=== PATIENT | male | born 1960 | race African-American/Black ===

== ENCOUNTER 2018-04-27 16:37 | Inpatient (IN) | payer OTHER ==
[~2018-04-27] VITALS: Ht 185.4 cm; Wt 97.3 kg
[2018-04-27 17:22] LABS: Basophils # (auto) 0.1 uL; Basophils % (auto) 1.2 % (0.0-2.0); Eosinophils # (auto) 0.3 uL; Eosinophils % (auto) 3.6 % (0.0-7.0); Hematocrit 40.2 % (41.0-53.0); Hemoglobin 13.2 g/dL (13.5-17.5); Lymphocytes # (auto) 3.2 uL; Lymphocytes % (auto) 45.6 % (10.0-50.0); Mean Corpuscular Hgb Conc. 32.8 g/dL (32.0-36.0); Mean Corpuscular Volume 85.3 fL (80.0-100.0); Monocytes # (auto) 0.4 uL; Neutrophils # (auto) 3.1 uL; Neutrophils % (auto) 43.6 % (37.0-80.0); Nucleated Red Blood Cells % 0.2 %; Platelet Count (auto) 336 10^3/uL (140-450); Red Blood Cells 4.71 10^6/uL (4.5-5.90); Red Cell Distribution Width 13.4 % (11.8-14.3); White Blood Cell 7.1 10^3/uL (4.4-10.8)
[2018-04-27 17:49] LABS: Albumin 3.7 g/dL (3.4-5.0); BUN/Creatinine Ratio 13.4; Bilirubin, Total 0.1 mg/dL (0.2-1.0); Calcium 9.1 mg/dL (8.5-10.1); Potassium 4.1 mmol/L (3.5-5.1)
[2018-04-27] MEDS ORDERED: PIPERACILLIN-TAZOB 3.375GM 100 ML IV ONE (19:30)
[2018-04-27] MEDS ORDERED: MORPHINE SULFATE 4 MG/ML SYR/VIAL IV ONE (22:15)
[2018-04-27] MEDS ORDERED: ONDANSETRON HCL 4 MG/2 ML VIAL IV ONE (22:15)
[2018-04-27 23:08] LABS: Urine Bacteria NONE SEEN /hpf (None Seen); Urine Blood Negative /uL (Negative); Urine Specific Gravity 1.006 (1.001-1.035); Urine WBC <1 /hpf (0 - 3)
[2018-04-27] MEDS ORDERED: DEXTROSE (50%) 50ML SYRG IV PRN (23:15)
[2018-04-27] MEDS: cloNIDine HCL 0.1 MG TAB PO PRN (23:58)
[2018-04-28 01:45] VITALS: BP 139/74
[2018-04-28] MEDS ORDERED: VANCOMYCIN 1GM/250ML 250 ML IV ONE (02:00)
[2018-04-28 05:00] VITALS: BP 105/68
[2018-04-28] MEDS: ACCU-CHEK COMFORT CURVE STRIP VI SCH ×4 (06:34→21:29)
[2018-04-28] MEDS: InsuLIN REG 1unit/0.01ml Soln (100units/ml) SC SCH ×4 (06:38→21:47)
[2018-04-28 08:59] LABS: Albumin 3.1 g/dL (3.4-5.0); BUN/Creatinine Ratio 12.1; Bilirubin, Total 0.4 mg/dL (0.2-1.0); Calcium 8.6 mg/dL (8.5-10.1); Total Protein 6.8 g/dL (6.4-8.2)
[2018-04-28 09:06] VITALS: BP 121/75
[2018-04-28 09:12] LABS: Potassium 4.2 mmol/L (3.5-5.1)
[2018-04-28] MEDS ORDERED: GABAPENTIN 300 MG CAP PO SCH (10:00)
[2018-04-28] MEDS ORDERED: VANCOMYCIN 1GM/250ML 250 ML IV SCH (10:00)
[2018-04-28] MEDS ORDERED: LISINOPRIL 10 MG TAB PO SCH (10:00)
[2018-04-28] MEDS ORDERED: ENOXAPARIN SOD 40 MG/0.4 ML SYRINGE SC SCH (10:00)
[2018-04-28] MEDS: ATORVASTATIN 20 MG TAB PO SCH (10:49)
[2018-04-28] MEDS: METOPROLOL SUCCINATE XL 50 MG TAB PO SCH ×2 (10:51→21:29)
[2018-04-28 12:12] VITALS: BP 131/72
[2018-04-28] MEDS: VANCOMYCIN 1GM/250ML 250 ML IV SCH ×2 (15:21→19:30)
[2018-04-28 22:00] VITALS: BP 141/77
[2018-04-28 22:29] VITALS: BP 126/65
[2018-04-28] MEDS: GABAPENTIN 300 MG CAP PO SCH (22:29)
[2018-04-29] MEDS: VANCOMYCIN 1GM/250ML 250 ML IV SCH ×2 (03:00→14:56)
[2018-04-29 05:00] VITALS: BP 130/72
[2018-04-29] MEDS: GABAPENTIN 300 MG CAP PO SCH ×3 (06:37→21:40)
[2018-04-29] MEDS: ACCU-CHEK COMFORT CURVE STRIP VI SCH ×4 (06:37→21:44)
[2018-04-29] MEDS: InsuLIN REG 1unit/0.01ml Soln (100units/ml) SC SCH ×4 (06:45→21:44)
[2018-04-29 06:52] LABS: BUN/Creatinine Ratio 14.4; Calcium 8.3 mg/dL (8.5-10.1); Potassium 4.1 mmol/L (3.5-5.1)
[2018-04-29 06:54] LABS: Bilirubin, Total 0.2 mg/dL (0.2-1.0); Total Protein 6.8 g/dL (6.4-8.2)
[2018-04-29 07:45] VITALS: BP 130/75
[2018-04-29 09:12] LABS: INR 0.97 (0.9-1.15); Prothrombin Time 10.4 sec (9.27-12.13)
[2018-04-29] MEDS: ATORVASTATIN 20 MG TAB PO SCH (09:31)
[2018-04-29] MEDS: METOPROLOL SUCCINATE XL 50 MG TAB PO SCH ×2 (09:33→21:41)
[2018-04-29] MEDS: LOSARTAN POTASSIUM 50 MG TAB PO SCH (09:33)
[2018-04-29] MEDS: ENOXAPARIN SOD 40 MG/0.4 ML SYRINGE SC SCH (09:34)
[2018-04-29] MEDS ORDERED: GABAPENTIN 300 MG CAP PO SCH (10:00)
[2018-04-29] MEDS: ASPirin 81 mg TAB PO SCH (13:24)
[2018-04-29 13:47] VITALS: BP 121/70
[2018-04-29 16:54] VITALS: BP 133/66
[2018-04-29 22:00] VITALS: BP 110/72
[2018-04-30] MEDS ORDERED: VANCOMYCIN 1GM/250ML 250 ML IV SCH ×2 (03:00→07:00)
[2018-04-30 05:00] VITALS: BP 147/90
[2018-04-30] MEDS: GABAPENTIN 300 MG CAP PO SCH ×3 (05:36→21:42)
[2018-04-30] MEDS: InsuLIN REG 1unit/0.01ml Soln (100units/ml) SC SCH ×4 (06:24→21:44)
[2018-04-30] MEDS: ACCU-CHEK COMFORT CURVE STRIP VI SCH ×4 (06:24→21:43)
[2018-04-30 08:00] VITALS: BP 160/87
[2018-04-30] MEDS: ASPirin 81 mg TAB PO SCH (09:29)
[2018-04-30] MEDS: ENOXAPARIN SOD 40 MG/0.4 ML SYRINGE SC SCH (09:29)
[2018-04-30] MEDS: ATORVASTATIN 20 MG TAB PO SCH (09:38)
[2018-04-30] MEDS: METOPROLOL SUCCINATE XL 50 MG TAB PO SCH ×2 (09:38→22:00)
[2018-04-30] MEDS: LOSARTAN POTASSIUM 50 MG TAB PO SCH (09:40)
[2018-04-30] MEDS ORDERED: IODIXANOL 320MG/ML 100ML BTL IV ONE (11:56)
[2018-04-30] MEDS ORDERED: LIDOCAINE 2% (LOCAL ANESTH.) PF 5ml SDV ONE (11:56)
[2018-04-30 12:00] VITALS: BP 151/87
[2018-04-30] MEDS ORDERED: ANGIOMAX 250 MG VIAL IV ONE ×2 (12:02→13:13)
[2018-04-30] MEDS ORDERED: SODIUM CHL 0.9% 50 ML ONE ×2 (12:03→13:13)
[2018-04-30] MEDS ORDERED: fentaNYL CITRATE 100 MCG/2 ML VL ONE (12:03)
[2018-04-30] MEDS ORDERED: MIDAZOLAM HCL 1MG/1ML-2 ML VIAL ONE (12:03)
[2018-04-30] MEDS ORDERED: VERAPAMIL 2.5MG/ML INJ 2ML VIAL IV ONE (12:38)
[2018-04-30] MEDS ORDERED: NITROGLYCERIN 5MG/ML 10ML VIAL IV ONE (12:38)
[2018-04-30] MEDS ORDERED: diphenhdrAMINE HCL 50 MG/1 ML VL ONE (12:52)
[2018-04-30] MEDS ORDERED: CLOPIDOGREL 300 MG TAB ONE (13:29)
[2018-04-30] MEDS ORDERED: NITROGLYCERIN 0.4MG/DOSE SPRAY 4.9GM ONE (13:34)
[2018-04-30] MEDS: cloNIDine HCL 0.1 MG TAB PO PRN (15:09)
[2018-04-30 17:00] VITALS: BP 102/67
[2018-04-30 22:00] VITALS: BP 105/68
[2018-05-01] MEDS: VANCOMYCIN 1GM/250ML 250 ML IV SCH ×2 (01:30→14:02)
[2018-05-01 05:00] VITALS: BP 122/63
[2018-05-01] MEDS: GABAPENTIN 300 MG CAP PO SCH ×3 (05:57→22:00)
[2018-05-01] MEDS: ACCU-CHEK COMFORT CURVE STRIP VI SCH ×4 (06:11→22:00)
[2018-05-01] MEDS: InsuLIN REG 1unit/0.01ml Soln (100units/ml) SC SCH ×4 (06:12→22:00)
[2018-05-01 08:04] LABS: Basophils # (auto) 0 uL; Basophils % (auto) 0.3 % (0.0-2.0); Eosinophils # (auto) 0.2 uL; Eosinophils % (auto) 4.6 % (0.0-7.0); Hematocrit 39.3 % (41.0-53.0); Hemoglobin 12.6 g/dL (13.5-17.5); Lymphocytes % (auto) 41.7 % (10.0-50.0); Mean Corpuscular Hemoglobin 27.4 pg (28.0-32.0); Mean Corpuscular Hgb Conc. 32.1 g/dL (32.0-36.0); Mean Corpuscular Volume 85.2 fL (80.0-100.0); Monocytes # (auto) 0.4 uL; Monocytes % (auto) 8.5 % (0.0-12.0); Neutrophils # (auto) 2.1 uL; Neutrophils % (auto) 44.9 % (37.0-80.0); Nucleated Red Blood Cells % 0.1 %; Platelet Count (auto) 299 10^3/uL (140-450); Red Blood Cells 4.61 10^6/uL (4.5-5.90); Red Cell Distribution Width 13.7 % (11.8-14.3); White Blood Cell 4.7 10^3/uL (4.4-10.8)
[2018-05-01 08:08] LABS: Calcium 8.6 mg/dL (8.5-10.1); Potassium 4.3 mmol/L (3.5-5.1)
[2018-05-01 08:14] LABS: BUN/Creatinine Ratio 15.3
[2018-05-01 09:00] VITALS: BP 137/55
[2018-05-01] MEDS: ENOXAPARIN SOD 40 MG/0.4 ML SYRINGE SC SCH (09:57)
[2018-05-01] MEDS: LOSARTAN POTASSIUM 50 MG TAB PO SCH (09:58)
[2018-05-01] MEDS: ATORVASTATIN 20 MG TAB PO SCH (09:58)
[2018-05-01] MEDS: ASPirin 81 mg TAB PO SCH (09:58)
[2018-05-01] MEDS: METOPROLOL SUCCINATE XL 50 MG TAB PO SCH ×2 (09:58→22:00)
[2018-05-01 13:00] VITALS: BP 140/56
[2018-05-01 17:00] VITALS: BP 130/50
[2018-05-01 22:00] VITALS: BP 100/123
[2018-05-02] MEDS: VANCOMYCIN 1GM/250ML 250 ML IV SCH ×2 (02:06→15:11)
[2018-05-02 05:00] VITALS: BP 110/61
[2018-05-02] MEDS: GABAPENTIN 300 MG CAP PO SCH ×3 (06:30→22:12)
[2018-05-02] MEDS: InsuLIN REG 1unit/0.01ml Soln (100units/ml) SC SCH ×4 (07:14→22:13)
[2018-05-02] MEDS: ACCU-CHEK COMFORT CURVE STRIP VI SCH ×4 (07:15→22:13)
[2018-05-02 08:30] VITALS: BP 146/77
[2018-05-02] MEDS: ENOXAPARIN SOD 40 MG/0.4 ML SYRINGE SC SCH (10:22)
[2018-05-02] MEDS: ATORVASTATIN 20 MG TAB PO SCH (10:23)
[2018-05-02] MEDS: LOSARTAN POTASSIUM 50 MG TAB PO SCH (10:23)
[2018-05-02] MEDS: ASPirin 81 mg TAB PO SCH (10:23)
[2018-05-02] MEDS: METOPROLOL SUCCINATE XL 50 MG TAB PO SCH ×2 (10:23→22:12)
[2018-05-02 12:56] VITALS: BP 137/99
[2018-05-02 16:51] VITALS: BP 148/76
[2018-05-02] MEDS ORDERED: INSLANTI SC (17:05)
[2018-05-02 22:00] VITALS: BP 139/68
[2018-05-03] MEDS ORDERED: VANCOMYCIN 1GM/250ML 250 ML IV SCH (01:00)
[2018-05-03 05:00] VITALS: BP 132/71
[2018-05-03 05:28] LABS: Basophils # (auto) 0 uL; Basophils % (auto) 0.5 % (0.0-2.0); Eosinophils # (auto) 0.3 uL; Hematocrit 40.6 % (41.0-53.0); Hemoglobin 13.1 g/dL (13.5-17.5); Lymphocytes # (auto) 2.4 uL; Lymphocytes % (auto) 33.6 % (10.0-50.0); Mean Corpuscular Hemoglobin 27.8 pg (28.0-32.0); Mean Corpuscular Hgb Conc. 32.3 g/dL (32.0-36.0); Mean Corpuscular Volume 86.1 fL (80.0-100.0); Monocytes # (auto) 0.7 uL; Monocytes % (auto) 10.1 % (0.0-12.0); Neutrophils # (auto) 3.6 uL; Neutrophils % (auto) 51.8 % (37.0-80.0); Nucleated Red Blood Cells % 0.1 %; Platelet Count (auto) 315 10^3/uL (140-450); Red Blood Cells 4.72 10^6/uL (4.5-5.90); Red Cell Distribution Width 13.3 % (11.8-14.3)
[2018-05-03 06:03] LABS: BUN/Creatinine Ratio 14.8; Calcium 8.8 mg/dL (8.5-10.1); Potassium 4.6 mmol/L (3.5-5.1)
[2018-05-03] MEDS: GABAPENTIN 300 MG CAP PO SCH (06:15)
[2018-05-03] MEDS: ACCU-CHEK COMFORT CURVE STRIP VI SCH (06:15)
[2018-05-03] MEDS: InsuLIN REG 1unit/0.01ml Soln (100units/ml) SC SCH (06:15)
[2018-05-03 08:37] VITALS: BP 129/66
[2018-05-03 11:05] VITALS: BP 129/66
== END 2018-05-03 11:30 | DRG 271 ==
LOC: EEVIPCON 16:37 → ER 16:37 → EAST 16:38 → EEVIPCON 16:38
PROVIDERS: ADMIT Internal Medicine; ATTEND Internal Medicine
PROC: 04CP3ZZ Extirpation of Matter from Right Anterior Tibial Artery, Percutaneous Approach (ICD-10-PCS; principal; 2018-04-30)
PROC: 04CK3ZZ Extirpation of Matter from Right Femoral Artery, Percutaneous Approach (ICD-10-PCS; 2018-04-30)
PROC: 047P3Z1 Dilation of Right Anterior Tibial Artery using Drug-Coated Balloon, Percutaneous Approach (ICD-10-PCS; 2018-04-30)
PROC: 047K3Z1 Dilation of Right Femoral Artery using Drug-Coated Balloon, Percutaneous Approach (ICD-10-PCS; 2018-04-30)
PROC: B41F1ZZ Fluoroscopy of Right Lower Extremity Arteries using Low Osmolar Contrast (ICD-10-PCS; 2018-04-30)
DX: I70.201 Unspecified atherosclerosis of native arteries of extremities, right leg (principal); M86.171 Other acute osteomyelitis, right ankle and foot; L03.115 Cellulitis of right lower limb; E11.69 Type 2 diabetes mellitus with other specified complication; L97.509 Non-pressure chronic ulcer of other part of unspecified foot with unspecified severity; I10 Essential (primary) hypertension; E11.621 Type 2 diabetes mellitus with foot ulcer; H54.7 Unspecified visual loss; L97.519 Non-pressure chronic ulcer of other part of right foot with unspecified severity; M79.674 Pain in right toe(s); E78.00 Pure hypercholesterolemia, unspecified; E11.40 Type 2 diabetes mellitus with diabetic neuropathy, unspecified; I25.10 Atherosclerotic heart disease of native coronary artery without angina pectoris; E11.51 Type 2 diabetes mellitus with diabetic peripheral angiopathy without gangrene; Z80.0 Family history of malignant neoplasm of digestive organs; Z82.3 Family history of stroke; Z82.49 Family history of ischemic heart disease and other diseases of the circulatory system; Z83.3 Family history of diabetes mellitus; Z87.891 Personal history of nicotine dependence; Z89.429 Acquired absence of other toe(s), unspecified side; Z90.89 Acquired absence of other organs; Z89.421 Acquired absence of other right toe(s); Z89.422 Acquired absence of other left toe(s)
CPT/HCPCS: 36415; 37224; 37225; 37228; 37229; 71045; 73630; 73700; 73718; 75710; 80048; 80053; 80202; 81001; 82962; 85025; 85610; 86850; 86900; 86901; 87040; 87077; 87186; 87205; 93005; 93926; 96365; 96366; 96375; 99152; 99153; A6257; J1815; J2001; J2250; J2405; J2543; J3490; Q9967

== ENCOUNTER 2018-05-03 15:27 | Inpatient (IN) | payer OTHER ==
[~2018-05-03] VITALS: Ht 185.4 cm; Wt 79.2 kg
[~2018-05-03 15:27] MED LIST: INSLANTI SC
[2018-05-03] MEDS ORDERED: NITROGLYCERIN 0.4 MG SL TAB SL PRN (16:15)
[2018-05-03] MEDS ORDERED: MORPHINE SULF INJ 2 MG/ML SYRINGE 1ML IV PRN (16:15)
[2018-05-03] MEDS ORDERED: cloNIDine HCL 0.1 MG TAB PO PRN (16:30)
[2018-05-03] MEDS ORDERED: DEXTROSE (50%) 50ML SYRG IV PRN ×2 (16:30→16:45)
[2018-05-03] MEDS ORDERED: VANCOMYCIN 1GM/250ML 250 ML IV SCH (18:00)
[2018-05-03] MEDS ORDERED: traMADol HCL 50 MG TAB PO SCH (18:00)
[2018-05-03 21:33] VITALS: BP 107/65
[2018-05-03] MEDS: ceFAZolin 1GM/50ML 50 ML IV SCH (21:41)
[2018-05-03] MEDS ORDERED: VANCOMYCIN PER PHARMACY 0 MG IV PRN (22:00)
[2018-05-03] MEDS: ACCU-CHEK COMFORT CURVE STRIP VI SCH (22:26)
[2018-05-03] MEDS: ATORVASTATIN 20 MG TAB PO SCH (22:27)
[2018-05-03] MEDS: GABAPENTIN 300 MG CAP PO SCH (22:27)
[2018-05-03] MEDS: InsuLIN REG 1unit/0.01ml Soln (100units/ml) SC SCH (22:27)
[2018-05-03] MEDS: INSULIN LANTUS (GLARGINE) 1 /0.01ml (100units/ml) SC SCH (22:28)
[2018-05-03] MEDS: METOPROLOL SUCCINATE XL 50 MG TAB PO SCH (22:28)
[2018-05-04 04:49] VITALS: BP 107/65
[2018-05-04] MEDS: ceFAZolin 1GM/50ML 50 ML IV SCH ×3 (05:30→21:38)
[2018-05-04] MEDS: ACCU-CHEK COMFORT CURVE STRIP VI SCH ×4 (06:45→21:39)
[2018-05-04] MEDS: GABAPENTIN 300 MG CAP PO SCH ×3 (06:46→21:38)
[2018-05-04] MEDS: InsuLIN REG 1unit/0.01ml Soln (100units/ml) SC SCH ×4 (06:46→21:53)
[2018-05-04 08:54] VITALS: BP 110/62
[2018-05-04] MEDS: LOSARTAN POTASSIUM 50 MG TAB PO SCH (09:23)
[2018-05-04] MEDS: METOPROLOL SUCCINATE XL 50 MG TAB PO SCH ×2 (09:24→21:39)
[2018-05-04] MEDS: ASPirin 81 mg TAB PO SCH (09:26)
[2018-05-04] MEDS: ENOXAPARIN SOD 40 MG/0.4 ML SYRINGE SC SCH (09:26)
[2018-05-04] MEDS: INSULIN LANTUS (GLARGINE) 1 /0.01ml (100units/ml) SC SCH ×2 (09:27→21:53)
[2018-05-04 13:00] VITALS: BP 122/68
[2018-05-04 16:19] VITALS: BP 166/82
[2018-05-04 16:28] LABS: Partial Thromboplastin Time 28.2 sec (23.78-33.04); Prothrombin Time 10.7 sec (9.27-12.13)
[2018-05-04 21:34] VITALS: BP 103/55
[2018-05-04] MEDS: ATORVASTATIN 20 MG TAB PO SCH (21:38)
[2018-05-05 04:44] VITALS: BP 113/73
[2018-05-05] MEDS: ceFAZolin 1GM/50ML 50 ML IV SCH ×3 (05:25→21:20)
[2018-05-05] MEDS: GABAPENTIN 300 MG CAP PO SCH ×3 (06:28→22:21)
[2018-05-05] MEDS: ACCU-CHEK COMFORT CURVE STRIP VI SCH ×4 (06:29→23:06)
[2018-05-05] MEDS: InsuLIN REG 1unit/0.01ml Soln (100units/ml) SC SCH ×5 (06:29→23:07)
[2018-05-05 08:46] VITALS: BP 123/70
[2018-05-05] MEDS: METOPROLOL SUCCINATE XL 50 MG TAB PO SCH ×2 (09:44→22:21)
[2018-05-05] MEDS: LOSARTAN POTASSIUM 50 MG TAB PO SCH (09:45)
[2018-05-05] MEDS: INSULIN LANTUS (GLARGINE) 1 /0.01ml (100units/ml) SC SCH ×2 (09:45→23:06)
[2018-05-05] MEDS: ASPirin 81 mg TAB PO SCH (09:45)
[2018-05-05] MEDS: ENOXAPARIN SOD 40 MG/0.4 ML SYRINGE SC SCH (09:46)
[2018-05-05 12:34] VITALS: BP 106/64
[2018-05-05] MEDS ORDERED: NEOMYCIN-BACITRACIN-POLYM 15GM TOP OINT TOP ONE (14:17)
[2018-05-05] MEDS ORDERED: BUPIVACAINE 0.75% INJ 10ML MPV SDV IJ ONE (14:17)
[2018-05-05] MEDS ORDERED: ceFAZolin 1GM/50ML 50 ML IV ONE (14:18)
[2018-05-05 14:23] LABS: Basophils # (auto) 0.1 uL; Basophils % (auto) 1.5 % (0.0-2.0); Eosinophils # (auto) 0.3 uL; Eosinophils % (auto) 5.4 % (0.0-7.0); Hematocrit 39.6 % (41.0-53.0); Hemoglobin 12.9 g/dL (13.5-17.5); Lymphocytes # (auto) 2.2 uL; Lymphocytes % (auto) 38.1 % (10.0-50.0); Mean Corpuscular Hemoglobin 27.9 pg (28.0-32.0); Mean Corpuscular Hgb Conc. 32.6 g/dL (32.0-36.0); Mean Corpuscular Volume 85.4 fL (80.0-100.0); Monocytes # (auto) 0.4 uL; Monocytes % (auto) 7.5 % (0.0-12.0); Neutrophils # (auto) 2.7 uL; Neutrophils % (auto) 47.5 % (37.0-80.0); Nucleated Red Blood Cells % 0.2 %; Platelet Count (auto) 309 10^3/uL (140-450); Red Blood Cells 4.64 10^6/uL (4.5-5.90); Red Cell Distribution Width 13.3 % (11.8-14.3); White Blood Cell 5.7 10^3/uL (4.4-10.8)
[2018-05-05] MEDS ORDERED: KETOROLAC TROMETH 30 MG/ML 1ML VIAL IV ONE (14:30)
[2018-05-05] MEDS ORDERED: METOCLOPRAMIDE HCL 5MG/ml INJ 2ml VIAL IV ONE (14:30)
[2018-05-05] MEDS ORDERED: ACCU-CHEK COMFORT CURVE STRIP VI ONE ×2 (14:30→19:45)
[2018-05-05 14:36] LABS: Prothrombin Time 10.7 sec (9.27-12.13)
[2018-05-05 14:43] LABS: Albumin 3.2 g/dL (3.4-5.0); BUN/Creatinine Ratio 14.8; Bilirubin, Total 0.3 mg/dL (0.2-1.0); Calcium 8.9 mg/dL (8.5-10.1); Potassium 4.2 mmol/L (3.5-5.1); Total Protein 7.4 g/dL (6.4-8.2)
[2018-05-05] MEDS ORDERED: fentaNYL CITRATE 100 MCG/2 ML VL ONE (15:03)
[2018-05-05] MEDS ORDERED: MIDAZOLAM HCL 1MG/1ML-2 ML VIAL ONE (15:03)
[2018-05-05] MEDS ORDERED: MORPHINE SULFATE 4 MG/ML SYR/VIAL IV ONE (16:00)
[2018-05-05 16:59] VITALS: BP 133/82
[2018-05-05] MEDS ORDERED: DEXTROSE (50%) 50ML SYRG IV PRN (18:15)
[2018-05-05] MEDS ORDERED: InsuLIN REG 1unit/0.01ml Soln (100units/ml) SC ONE (19:45)
[2018-05-05 22:00] VITALS: BP 145/93
[2018-05-05] MEDS: SODIUM CHLOR 0.9% PF (SALINE LOCK) 10ML VIAL/SYR IV SCH (22:21)
[2018-05-05] MEDS: ATORVASTATIN 20 MG TAB PO SCH (22:21)
[2018-05-06] MEDS: traMADol HCL 50 MG TAB PO PRN ×5 (00:41→20:43)
[2018-05-06 05:00] VITALS: BP 114/71
[2018-05-06] MEDS: ceFAZolin 1GM/50ML 50 ML IV SCH ×3 (05:00→20:57)
[2018-05-06] MEDS: GABAPENTIN 300 MG CAP PO SCH ×2 (06:29→15:00)
[2018-05-06] MEDS: ACCU-CHEK COMFORT CURVE STRIP VI SCH ×4 (06:29→21:07)
[2018-05-06] MEDS: InsuLIN REG 1unit/0.01ml Soln (100units/ml) SC SCH ×4 (06:30→21:47)
[2018-05-06 08:42] VITALS: BP 129/81
[2018-05-06] MEDS: LOSARTAN POTASSIUM 50 MG TAB PO SCH (09:43)
[2018-05-06] MEDS: ASPirin 81 mg TAB PO SCH (09:44)
[2018-05-06] MEDS: METOPROLOL SUCCINATE XL 50 MG TAB PO SCH (09:44)
[2018-05-06] MEDS: ENOXAPARIN SOD 40 MG/0.4 ML SYRINGE SC SCH (09:45)
[2018-05-06] MEDS: SODIUM CHLOR 0.9% PF (SALINE LOCK) 10ML VIAL/SYR IV SCH ×2 (11:14→21:07)
[2018-05-06] MEDS: INSULIN LANTUS (GLARGINE) 1 /0.01ml (100units/ml) SC SCH ×2 (11:14→21:53)
[2018-05-06 14:20] VITALS: BP 148/70
[2018-05-06 17:16] VITALS: BP 163/73
[2018-05-06 21:37] VITALS: BP 146/84
[2018-05-06] MEDS ORDERED: METOPROLOL SUCCINATE XL 50 MG TAB PO ONE (21:45)
[2018-05-06] MEDS ORDERED: GABAPENTIN 300 MG CAP PO ONE (21:45)
[2018-05-06] MEDS ORDERED: ATORVASTATIN 20 MG TAB PO ONE (21:45)
[2018-05-07] MEDS: traMADol HCL 50 MG TAB PO PRN ×3 (04:00→22:03)
[2018-05-07 04:42] VITALS: BP 133/73
[2018-05-07] MEDS: ceFAZolin 1GM/50ML 50 ML IV SCH ×3 (04:55→21:40)
[2018-05-07] MEDS: GABAPENTIN 300 MG CAP PO SCH ×3 (06:15→21:40)
[2018-05-07] MEDS: ACCU-CHEK COMFORT CURVE STRIP VI SCH ×4 (06:24→22:03)
[2018-05-07] MEDS: InsuLIN REG 1unit/0.01ml Soln (100units/ml) SC SCH ×4 (06:24→22:03)
[2018-05-07 08:00] VITALS: BP 112/64
[2018-05-07 09:00] VITALS: BP 112/64
[2018-05-07] MEDS: METOPROLOL SUCCINATE XL 50 MG TAB PO SCH ×2 (10:37→21:42)
[2018-05-07] MEDS: ENOXAPARIN SOD 40 MG/0.4 ML SYRINGE SC SCH (10:38)
[2018-05-07] MEDS: SODIUM CHLOR 0.9% PF (SALINE LOCK) 10ML VIAL/SYR IV SCH ×2 (10:38→22:02)
[2018-05-07] MEDS: INSULIN LANTUS (GLARGINE) 1 /0.01ml (100units/ml) SC SCH ×2 (10:41→22:03)
[2018-05-07 13:00] VITALS: BP 128/69
[2018-05-07 16:57] VITALS: BP 151/72
[2018-05-07] MEDS: ASCORBIC ACID 500 MG TAB PO SCH (21:40)
[2018-05-07] MEDS: ATORVASTATIN 20 MG TAB PO SCH (21:41)
[2018-05-07 22:00] VITALS: BP 147/75
[2018-05-08 05:00] VITALS: BP 139/72
[2018-05-08] MEDS: GABAPENTIN 300 MG CAP PO SCH ×3 (05:57→21:12)
[2018-05-08] MEDS: ceFAZolin 1GM/50ML 50 ML IV SCH ×3 (05:57→21:12)
[2018-05-08] MEDS: ACCU-CHEK COMFORT CURVE STRIP VI SCH ×4 (06:23→21:20)
[2018-05-08] MEDS: InsuLIN REG 1unit/0.01ml Soln (100units/ml) SC SCH ×4 (06:23→21:30)
[2018-05-08 08:00] VITALS: BP 126/59
[2018-05-08 09:00] VITALS: BP 126/59
[2018-05-08] MEDS: ASCORBIC ACID 500 MG TAB PO SCH ×2 (09:24→21:12)
[2018-05-08] MEDS: ENOXAPARIN SOD 40 MG/0.4 ML SYRINGE SC SCH (09:24)
[2018-05-08] MEDS: METOPROLOL SUCCINATE XL 50 MG TAB PO SCH ×2 (09:25→21:13)
[2018-05-08] MEDS: traMADol HCL 50 MG TAB PO PRN ×3 (09:25→21:12)
[2018-05-08] MEDS: MULTIPLE VITAMIN TAB PO SCH (09:25)
[2018-05-08] MEDS: SODIUM CHLOR 0.9% PF (SALINE LOCK) 10ML VIAL/SYR IV SCH ×2 (09:26→21:13)
[2018-05-08] MEDS: INSULIN LANTUS (GLARGINE) 1 /0.01ml (100units/ml) SC SCH ×2 (09:33→21:30)
[2018-05-08 13:00] VITALS: BP 171/83
[2018-05-08 17:00] VITALS: BP 136/90
[2018-05-08] MEDS: ATORVASTATIN 20 MG TAB PO SCH (21:12)
[2018-05-08 21:50] VITALS: BP 161/78
[2018-05-09] MEDS: traMADol HCL 50 MG TAB PO PRN ×5 (02:13→23:25)
[2018-05-09 05:05] VITALS: BP 110/58
[2018-05-09] MEDS: ACCU-CHEK COMFORT CURVE STRIP VI SCH ×4 (05:50→21:38)
[2018-05-09] MEDS: ceFAZolin 1GM/50ML 50 ML IV SCH ×3 (05:50→21:21)
[2018-05-09] MEDS: GABAPENTIN 300 MG CAP PO SCH ×3 (05:51→21:22)
[2018-05-09] MEDS: InsuLIN REG 1unit/0.01ml Soln (100units/ml) SC SCH ×4 (06:32→21:38)
[2018-05-09 08:00] VITALS: BP 161/78
[2018-05-09 09:00] VITALS: BP 122/57
[2018-05-09] MEDS: ENOXAPARIN SOD 40 MG/0.4 ML SYRINGE SC SCH (10:00)
[2018-05-09] MEDS: MULTIPLE VITAMIN TAB PO SCH (11:09)
[2018-05-09] MEDS: SODIUM CHLOR 0.9% PF (SALINE LOCK) 10ML VIAL/SYR IV SCH ×2 (11:09→21:38)
[2018-05-09] MEDS: METOPROLOL SUCCINATE XL 50 MG TAB PO SCH ×2 (11:09→21:23)
[2018-05-09] MEDS: INSULIN LANTUS (GLARGINE) 1 /0.01ml (100units/ml) SC SCH ×2 (11:10→21:38)
[2018-05-09] MEDS: ASCORBIC ACID 500 MG TAB PO SCH ×2 (11:10→21:22)
[2018-05-09 13:00] VITALS: BP 140/68
[2018-05-09 17:00] VITALS: BP 132/75
[2018-05-09] MEDS: ATORVASTATIN 20 MG TAB PO SCH (21:22)
[2018-05-09 22:00] VITALS: BP 139/82
[2018-05-10 05:29] VITALS: BP 119/67
[2018-05-10] MEDS: ceFAZolin 1GM/50ML 50 ML IV SCH ×3 (06:19→20:56)
[2018-05-10] MEDS: ACCU-CHEK COMFORT CURVE STRIP VI SCH ×4 (06:20→21:15)
[2018-05-10] MEDS: GABAPENTIN 300 MG CAP PO SCH ×3 (06:20→21:05)
[2018-05-10] MEDS: InsuLIN REG 1unit/0.01ml Soln (100units/ml) SC SCH ×4 (06:30→21:26)
[2018-05-10 08:00] VITALS: BP 120/74
[2018-05-10 09:00] VITALS: BP 120/74
[2018-05-10] MEDS: ASCORBIC ACID 500 MG TAB PO SCH ×2 (09:06→21:05)
[2018-05-10] MEDS: MULTIPLE VITAMIN TAB PO SCH (09:06)
[2018-05-10] MEDS: ENOXAPARIN SOD 40 MG/0.4 ML SYRINGE SC SCH (09:08)
[2018-05-10] MEDS: METOPROLOL SUCCINATE XL 50 MG TAB PO SCH ×2 (09:08→21:14)
[2018-05-10] MEDS: SODIUM CHLOR 0.9% PF (SALINE LOCK) 10ML VIAL/SYR IV SCH ×2 (09:08→21:05)
[2018-05-10] MEDS: INSULIN LANTUS (GLARGINE) 1 /0.01ml (100units/ml) SC SCH ×2 (09:11→21:26)
[2018-05-10] MEDS: traMADol HCL 50 MG TAB PO PRN ×3 (09:15→21:48)
[2018-05-10 12:00] VITALS: BP 139/79
[2018-05-10 16:38] VITALS: BP 150/80
[2018-05-10] MEDS: ATORVASTATIN 20 MG TAB PO SCH (21:05)
[2018-05-10 21:58] VITALS: BP 153/73
[2018-05-11] MEDS: ceFAZolin 1GM/50ML 50 ML IV SCH ×3 (04:30→20:26)
[2018-05-11 05:00] VITALS: BP 131/70
[2018-05-11] MEDS: GABAPENTIN 300 MG CAP PO SCH ×3 (05:02→21:13)
[2018-05-11] MEDS: traMADol HCL 50 MG TAB PO PRN ×3 (05:02→21:15)
[2018-05-11] MEDS: ACCU-CHEK COMFORT CURVE STRIP VI SCH ×4 (06:21→21:15)
[2018-05-11] MEDS: InsuLIN REG 1unit/0.01ml Soln (100units/ml) SC SCH ×4 (06:22→21:26)
[2018-05-11 09:00] VITALS: BP 129/73
[2018-05-11] MEDS: SODIUM CHLOR 0.9% PF (SALINE LOCK) 10ML VIAL/SYR IV SCH ×2 (10:27→21:53)
[2018-05-11] MEDS: METOPROLOL SUCCINATE XL 50 MG TAB PO SCH ×2 (10:28→21:14)
[2018-05-11] MEDS: MULTIPLE VITAMIN TAB PO SCH (10:28)
[2018-05-11] MEDS: ENOXAPARIN SOD 40 MG/0.4 ML SYRINGE SC SCH (10:29)
[2018-05-11] MEDS: ASCORBIC ACID 500 MG TAB PO SCH ×2 (10:29→21:14)
[2018-05-11] MEDS: INSULIN LANTUS (GLARGINE) 1 /0.01ml (100units/ml) SC SCH ×2 (11:01→21:26)
[2018-05-11 13:00] VITALS: BP 136/66
[2018-05-11 17:00] VITALS: BP 148/79
[2018-05-11] MEDS: ATORVASTATIN 20 MG TAB PO SCH (21:13)
[2018-05-11 22:00] VITALS: BP 140/79
[2018-05-12 04:39] VITALS: BP 135/72
[2018-05-12] MEDS: ceFAZolin 1GM/50ML 50 ML IV SCH ×3 (05:01→21:57)
[2018-05-12] MEDS: traMADol HCL 50 MG TAB PO PRN ×2 (05:02→11:35)
[2018-05-12] MEDS: GABAPENTIN 300 MG CAP PO SCH ×3 (05:36→22:52)
[2018-05-12] MEDS: ACCU-CHEK COMFORT CURVE STRIP VI SCH ×4 (06:26→22:53)
[2018-05-12] MEDS: InsuLIN REG 1unit/0.01ml Soln (100units/ml) SC SCH ×4 (06:27→22:53)
[2018-05-12 06:33] LABS: Basophils # (auto) 0 uL; Basophils % (auto) 0.4 % (0.0-2.0); Eosinophils # (auto) 0.2 uL; Eosinophils % (auto) 2.6 % (0.0-7.0); Hematocrit 38.7 % (41.0-53.0); Hemoglobin 12.5 g/dL (13.5-17.5); Lymphocytes # (auto) 2.1 uL; Lymphocytes % (auto) 22.7 % (10.0-50.0); Mean Corpuscular Hemoglobin 27.6 pg (28.0-32.0); Mean Corpuscular Hgb Conc. 32.4 g/dL (32.0-36.0); Mean Corpuscular Volume 85.2 fL (80.0-100.0); Monocytes % (auto) 10.7 % (0.0-12.0); Neutrophils # (auto) 5.8 uL; Neutrophils % (auto) 63.6 % (37.0-80.0); Platelet Count (auto) 436 10^3/uL (140-450); Red Blood Cells 4.54 10^6/uL (4.5-5.90); White Blood Cell 9.2 10^3/uL (4.4-10.8)
[2018-05-12 07:07] LABS: Albumin 2.9 g/dL (3.4-5.0); BUN/Creatinine Ratio 14.4; Bilirubin, Total 0.3 mg/dL (0.2-1.0); Calcium 8.9 mg/dL (8.5-10.1); Potassium 4.6 mmol/L (3.5-5.1); Total Protein 8.2 g/dL (6.4-8.2)
[2018-05-12 08:00] VITALS: BP 132/79
[2018-05-12 09:00] VITALS: BP 132/79
[2018-05-12] MEDS: SODIUM CHLOR 0.9% PF (SALINE LOCK) 10ML VIAL/SYR IV SCH ×2 (10:11→22:52)
[2018-05-12] MEDS: MULTIPLE VITAMIN TAB PO SCH (10:11)
[2018-05-12] MEDS: METOPROLOL SUCCINATE XL 50 MG TAB PO SCH ×2 (10:12→22:52)
[2018-05-12] MEDS: ASCORBIC ACID 500 MG TAB PO SCH ×2 (10:12→22:52)
[2018-05-12] MEDS: ENOXAPARIN SOD 40 MG/0.4 ML SYRINGE SC SCH (10:13)
[2018-05-12] MEDS: INSULIN LANTUS (GLARGINE) 1 /0.01ml (100units/ml) SC SCH ×2 (10:13→22:53)
[2018-05-12 13:00] VITALS: BP_SYST 116; BP_SYST 117; BP_DIAS 67; BP_DIAS 76
[2018-05-12 17:00] VITALS: BP 157/95
[2018-05-12] MEDS: HYDROcodone-ACET 10/325MG TAB PO PRN ×2 (18:00→22:15)
[2018-05-12 22:00] VITALS: BP 153/82
[2018-05-12] MEDS: ATORVASTATIN 20 MG TAB PO SCH (22:52)
[2018-05-13 05:00] VITALS: BP 115/69
[2018-05-13] MEDS: GABAPENTIN 300 MG CAP PO SCH ×3 (05:22→21:10)
[2018-05-13] MEDS: ceFAZolin 1GM/50ML 50 ML IV SCH ×3 (05:22→21:09)
[2018-05-13] MEDS: ACCU-CHEK COMFORT CURVE STRIP VI SCH ×4 (06:56→21:32)
[2018-05-13] MEDS: InsuLIN REG 1unit/0.01ml Soln (100units/ml) SC SCH ×4 (06:57→21:17)
[2018-05-13] MEDS: HYDROcodone-ACET 10/325MG TAB PO PRN ×3 (07:16→21:10)
[2018-05-13 09:00] VITALS: BP 138/68
[2018-05-13] MEDS: ASCORBIC ACID 500 MG TAB PO SCH ×2 (09:34→21:10)
[2018-05-13] MEDS: ENOXAPARIN SOD 40 MG/0.4 ML SYRINGE SC SCH (09:34)
[2018-05-13] MEDS: MULTIPLE VITAMIN TAB PO SCH (09:34)
[2018-05-13] MEDS: METOPROLOL SUCCINATE XL 50 MG TAB PO SCH ×2 (09:35→21:31)
[2018-05-13] MEDS: SODIUM CHLOR 0.9% PF (SALINE LOCK) 10ML VIAL/SYR IV SCH ×2 (09:35→21:11)
[2018-05-13] MEDS: INSULIN LANTUS (GLARGINE) 1 /0.01ml (100units/ml) SC SCH ×2 (09:35→21:31)
[2018-05-13] MEDS: metFORMIN HYDROCHLORIDE 500 MG TAB PO SCH (11:32)
[2018-05-13 13:00] VITALS: BP 133/69
[2018-05-13 18:07] VITALS: BP 115/60
[2018-05-13] MEDS: ATORVASTATIN 20 MG TAB PO SCH (21:10)
[2018-05-13 21:48] VITALS: BP 126/59
[2018-05-14 04:36] VITALS: BP 137/64
[2018-05-14] MEDS: ceFAZolin 1GM/50ML 50 ML IV SCH ×3 (05:00→20:57)
[2018-05-14] MEDS: GABAPENTIN 300 MG CAP PO SCH ×3 (06:00→21:22)
[2018-05-14] MEDS: HYDROcodone-ACET 10/325MG TAB PO PRN (08:13)
[2018-05-14 09:11] VITALS: BP 152/82
[2018-05-14] MEDS: MULTIPLE VITAMIN TAB PO SCH (10:03)
[2018-05-14] MEDS: ASCORBIC ACID 500 MG TAB PO SCH ×2 (10:03→21:22)
[2018-05-14] MEDS: ENOXAPARIN SOD 40 MG/0.4 ML SYRINGE SC SCH (10:04)
[2018-05-14] MEDS: SODIUM CHLOR 0.9% PF (SALINE LOCK) 10ML VIAL/SYR IV SCH ×2 (10:04→20:57)
[2018-05-14] MEDS: METOPROLOL SUCCINATE XL 50 MG TAB PO SCH ×2 (10:04→21:22)
[2018-05-14] MEDS: INSULIN LANTUS (GLARGINE) 1 /0.01ml (100units/ml) SC SCH ×2 (10:05→21:27)
[2018-05-14] MEDS: metFORMIN HYDROCHLORIDE 500 MG TAB PO SCH (11:48)
[2018-05-14] MEDS: ACCU-CHEK COMFORT CURVE STRIP VI SCH ×3 (11:51→21:27)
[2018-05-14] MEDS: InsuLIN REG 1unit/0.01ml Soln (100units/ml) SC SCH ×3 (11:51→21:27)
[2018-05-14 12:19] VITALS: BP 129/65
[2018-05-14] MEDS: ATORVASTATIN 20 MG TAB PO SCH (21:21)
[2018-05-14 22:00] VITALS: BP 156/103
[2018-05-15 05:39] VITALS: BP 115/75
[2018-05-15] MEDS: ceFAZolin 1GM/50ML 50 ML IV SCH ×3 (05:44→21:02)
[2018-05-15] MEDS: GABAPENTIN 300 MG CAP PO SCH ×3 (05:45→21:02)
[2018-05-15] MEDS: InsuLIN REG 1unit/0.01ml Soln (100units/ml) SC SCH ×4 (06:09→21:58)
[2018-05-15] MEDS: ACCU-CHEK COMFORT CURVE STRIP VI SCH ×4 (06:10→21:58)
[2018-05-15 08:32] VITALS: BP 139/69
[2018-05-15] MEDS: INSULIN LANTUS (GLARGINE) 1 /0.01ml (100units/ml) SC SCH ×2 (10:00)
[2018-05-15] MEDS: SODIUM CHLOR 0.9% PF (SALINE LOCK) 10ML VIAL/SYR IV SCH ×2 (10:34→21:02)
[2018-05-15] MEDS: ASCORBIC ACID 500 MG TAB PO SCH ×2 (10:35→21:02)
[2018-05-15] MEDS: MULTIPLE VITAMIN TAB PO SCH (10:35)
[2018-05-15] MEDS: ENOXAPARIN SOD 40 MG/0.4 ML SYRINGE SC SCH (10:35)
[2018-05-15] MEDS: METOPROLOL SUCCINATE XL 50 MG TAB PO SCH (10:36)
[2018-05-15] MEDS ORDERED: ENA10T PO (11:53)
[2018-05-15 12:30] VITALS: BP 128/69
[2018-05-15] MEDS: metFORMIN HYDROCHLORIDE 500 MG TAB PO SCH (12:30)
[2018-05-15] MEDS ORDERED: INSULIN LANTUS (GLARGINE) 1 /0.01ml (100units/ml) SC ONE (15:30)
[2018-05-15] MEDS: BACITRACIN-POLYMYXIN B TOPICAL OINT UD TOP SCH (16:00)
[2018-05-15 16:34] VITALS: BP 136/66
[2018-05-15] MEDS: OXYCODONE W/ ACETAMINOPHEN 5/325MG TABLET PO PRN (19:52)
[2018-05-15] MEDS: ATORVASTATIN 20 MG TAB PO SCH (21:02)
[2018-05-15 22:00] VITALS: BP 128/40
[2018-05-16 05:00] VITALS: BP 142/88
[2018-05-16] MEDS: ceFAZolin 1GM/50ML 50 ML IV SCH ×3 (05:41→21:00)
[2018-05-16] MEDS: GABAPENTIN 300 MG CAP PO SCH ×3 (05:42→22:00)
[2018-05-16] MEDS: OXYCODONE W/ ACETAMINOPHEN 5/325MG TABLET PO PRN ×3 (05:45→23:09)
[2018-05-16] MEDS: InsuLIN REG 1unit/0.01ml Soln (100units/ml) SC SCH ×4 (06:01→23:10)
[2018-05-16] MEDS: ACCU-CHEK COMFORT CURVE STRIP VI SCH ×4 (06:01→22:00)
[2018-05-16 08:57] VITALS: BP 129/66
[2018-05-16] MEDS: SODIUM CHLOR 0.9% PF (SALINE LOCK) 10ML VIAL/SYR IV SCH ×2 (10:00→22:00)
[2018-05-16] MEDS ORDERED: ENALAPRIL MALEATE 10 MG TAB PO SCH (10:00)
[2018-05-16] MEDS: BACITRACIN-POLYMYXIN B TOPICAL OINT UD TOP SCH (10:00)
[2018-05-16] MEDS: ASCORBIC ACID 500 MG TAB PO SCH ×2 (10:11→22:00)
[2018-05-16] MEDS: ENOXAPARIN SOD 40 MG/0.4 ML SYRINGE SC SCH (10:11)
[2018-05-16] MEDS: MULTIPLE VITAMIN TAB PO SCH (10:11)
[2018-05-16] MEDS: INSULIN LANTUS (GLARGINE) 1 /0.01ml (100units/ml) SC SCH (10:16)
[2018-05-16] MEDS: metFORMIN HYDROCHLORIDE 500 MG TAB PO SCH (12:00)
[2018-05-16 13:00] VITALS: BP 157/82
[2018-05-16 17:00] VITALS: BP 127/62
[2018-05-16 22:00] VITALS: BP 111/64
[2018-05-16] MEDS: ATORVASTATIN 20 MG TAB PO SCH (22:00)
[2018-05-17] MEDS: ceFAZolin 1GM/50ML 50 ML IV SCH ×3 (05:00→21:00)
[2018-05-17 05:05] VITALS: BP 128/72
[2018-05-17] MEDS: GABAPENTIN 300 MG CAP PO SCH ×3 (06:00→21:41)
[2018-05-17 06:16] LABS: Hemoglobin 12.2 g/dL (13.5-17.5); Mean Corpuscular Hgb Conc. 31.3 g/dL (32.0-36.0); Mean Corpuscular Volume 86.4 fL (80.0-100.0); Platelet Count (auto) 505 10^3/uL (140-450); Red Blood Cells 4.52 10^6/uL (4.5-5.90); Red Cell Distribution Width 13.2 % (11.8-14.3); White Blood Cell 8.5 10^3/uL (4.4-10.8)
[2018-05-17 06:19] LABS: Band Neutrophils % (manual) 0; Basophils % (manual) 0 (0.0-2.0); Blast Cells 0; Metamyelocytes % 0; Myelocytes % 0; Promyelocytes % 0; Reactive Lymphocytes 0
[2018-05-17] MEDS: InsuLIN REG 1unit/0.01ml Soln (100units/ml) SC SCH ×4 (06:34→22:00)
[2018-05-17] MEDS: ACCU-CHEK COMFORT CURVE STRIP VI SCH ×4 (06:34→21:42)
[2018-05-17 06:46] LABS: BUN/Creatinine Ratio 12.8; Calcium 9.3 mg/dL (8.5-10.1); Potassium 4.2 mmol/L (3.5-5.1)
[2018-05-17 06:59] LABS: Eosinophils % (manual) 5 (0-7); Lymphocytes % (manual) 39 (10.0-50.0); Monocytes % (manual) 7 (0-12)
[2018-05-17 08:13] VITALS: BP 110/69
[2018-05-17] MEDS: OXYCODONE W/ ACETAMINOPHEN 5/325MG TABLET PO PRN (09:03)
[2018-05-17] MEDS ORDERED: ENOXAPARIN SOD 60 MG/0.6 ML SYRINGE SC SCH (10:30)
[2018-05-17] MEDS: ASCORBIC ACID 500 MG TAB PO SCH ×2 (10:37→21:42)
[2018-05-17] MEDS: MULTIPLE VITAMIN TAB PO SCH (10:37)
[2018-05-17] MEDS: LOSARTAN POTASSIUM 50 MG TAB PO SCH (10:38)
[2018-05-17] MEDS: INSULIN LANTUS (GLARGINE) 1 /0.01ml (100units/ml) SC SCH (10:52)
[2018-05-17] MEDS: SODIUM CHLOR 0.9% PF (SALINE LOCK) 10ML VIAL/SYR IV SCH ×2 (10:53→21:41)
[2018-05-17] MEDS: BACITRACIN-POLYMYXIN B TOPICAL OINT UD TOP SCH (11:52)
[2018-05-17] MEDS: metFORMIN HYDROCHLORIDE 500 MG TAB PO SCH (12:47)
[2018-05-17 13:52] VITALS: BP 114/68
[2018-05-17 16:54] VITALS: BP 111/63
[2018-05-17] MEDS: ATORVASTATIN 20 MG TAB PO SCH (21:41)
[2018-05-17 22:00] VITALS: BP 134/73
[2018-05-18] MEDS: OXYCODONE W/ ACETAMINOPHEN 5/325MG TABLET PO PRN ×4 (02:41→19:52)
[2018-05-18 05:00] VITALS: BP 107/63
[2018-05-18] MEDS: ceFAZolin 1GM/50ML 50 ML IV SCH ×3 (05:00→19:52)
[2018-05-18] MEDS: GABAPENTIN 300 MG CAP PO SCH ×3 (06:00→21:37)
[2018-05-18] MEDS: InsuLIN REG 1unit/0.01ml Soln (100units/ml) SC SCH ×4 (07:11→21:38)
[2018-05-18] MEDS: ACCU-CHEK COMFORT CURVE STRIP VI SCH ×4 (07:12→21:38)
[2018-05-18 09:54] VITALS: BP 153/71
[2018-05-18] MEDS: SODIUM CHLOR 0.9% PF (SALINE LOCK) 10ML VIAL/SYR IV SCH ×2 (10:23→19:52)
[2018-05-18] MEDS: LOSARTAN POTASSIUM 50 MG TAB PO SCH (10:24)
[2018-05-18] MEDS: ASCORBIC ACID 500 MG TAB PO SCH ×2 (10:24→21:37)
[2018-05-18] MEDS: MULTIPLE VITAMIN TAB PO SCH (10:24)
[2018-05-18] MEDS: ENOXAPARIN SOD 40 MG/0.4 ML SYRINGE SC SCH (10:26)
[2018-05-18] MEDS: INSULIN LANTUS (GLARGINE) 1 /0.01ml (100units/ml) SC SCH (10:26)
[2018-05-18] MEDS: BACITRACIN-POLYMYXIN B TOPICAL OINT UD TOP SCH (10:27)
[2018-05-18] MEDS: metFORMIN HYDROCHLORIDE 500 MG TAB PO SCH (11:25)
[2018-05-18] MEDS ORDERED: CIPR-217 PO (11:26)
[2018-05-18 12:14] VITALS: BP 153/71
[2018-05-18 12:24] VITALS: BP 153/71
[2018-05-18 17:00] VITALS: BP 138/76
[2018-05-18] MEDS: Pro-Stat SF 30ml Vanilla PO SCH (18:19)
[2018-05-18] MEDS: ATORVASTATIN 20 MG TAB PO SCH (21:37)
[2018-05-18 22:00] VITALS: BP 140/73
[2018-05-19] MEDS: ceFAZolin 1GM/50ML 50 ML IV SCH ×3 (02:59→21:09)
[2018-05-19 05:30] VITALS: BP 144/83
[2018-05-19] MEDS: GABAPENTIN 300 MG CAP PO SCH ×3 (06:17→22:06)
[2018-05-19] MEDS: ACCU-CHEK COMFORT CURVE STRIP VI SCH ×4 (06:17→21:57)
[2018-05-19] MEDS: InsuLIN REG 1unit/0.01ml Soln (100units/ml) SC SCH ×4 (06:17→22:07)
[2018-05-19] MEDS: OXYCODONE W/ ACETAMINOPHEN 5/325MG TABLET PO PRN ×3 (06:17→20:39)
[2018-05-19 08:46] VITALS: BP 132/74
[2018-05-19] MEDS: LOSARTAN POTASSIUM 50 MG TAB PO SCH ×2 (10:00→10:02)
[2018-05-19] MEDS: SODIUM CHLOR 0.9% PF (SALINE LOCK) 10ML VIAL/SYR IV SCH ×3 (10:01→22:00)
[2018-05-19] MEDS: Pro-Stat SF 30ml Vanilla PO SCH ×2 (10:01→18:51)
[2018-05-19] MEDS: INSULIN LANTUS (GLARGINE) 1 /0.01ml (100units/ml) SC SCH (10:02)
[2018-05-19] MEDS: ENOXAPARIN SOD 40 MG/0.4 ML SYRINGE SC SCH (10:02)
[2018-05-19] MEDS: ASCORBIC ACID 500 MG TAB PO SCH ×2 (10:02→22:06)
[2018-05-19] MEDS: MULTIPLE VITAMIN TAB PO SCH (10:02)
[2018-05-19] MEDS: metFORMIN HYDROCHLORIDE 500 MG TAB PO SCH (11:55)
[2018-05-19 12:00] VITALS: BP 145/79
[2018-05-19] MEDS ORDERED: LIDOCAINE 1% (LOCAL ANESTH.) PF 5ml SDV ID ONE ×2 (13:30)
[2018-05-19] MEDS: BACITRACIN-POLYMYXIN B TOPICAL OINT UD TOP SCH (14:38)
[2018-05-19 21:36] VITALS: BP 137/72
[2018-05-19] MEDS ORDERED: SODIUM CHLOR 0.9% PF (SALINE LOCK) 10ML VIAL/SYR IV SCH (22:00)
[2018-05-19] MEDS: ATORVASTATIN 20 MG TAB PO SCH (22:06)
[2018-05-20 04:33] VITALS: BP 139/78
[2018-05-20] MEDS: ceFAZolin 1GM/50ML 50 ML IV SCH ×3 (05:25→21:13)
[2018-05-20] MEDS: GABAPENTIN 300 MG CAP PO SCH ×3 (05:25→22:13)
[2018-05-20] MEDS: ACCU-CHEK COMFORT CURVE STRIP VI SCH ×4 (06:32→22:13)
[2018-05-20] MEDS: InsuLIN REG 1unit/0.01ml Soln (100units/ml) SC SCH ×4 (06:37→22:24)
[2018-05-20] MEDS: Pro-Stat SF 30ml Vanilla PO SCH ×2 (08:00→17:43)
[2018-05-20] MEDS: OXYCODONE W/ ACETAMINOPHEN 5/325MG TABLET PO PRN ×2 (08:46→20:06)
[2018-05-20 09:00] VITALS: BP 135/70
[2018-05-20] MEDS: ASCORBIC ACID 500 MG TAB PO SCH ×2 (10:03→22:13)
[2018-05-20] MEDS: LOSARTAN POTASSIUM 50 MG TAB PO SCH (10:03)
[2018-05-20] MEDS: MULTIPLE VITAMIN TAB PO SCH (10:03)
[2018-05-20] MEDS: ENOXAPARIN SOD 40 MG/0.4 ML SYRINGE SC SCH (10:03)
[2018-05-20] MEDS: SODIUM CHLOR 0.9% PF (SALINE LOCK) 10ML VIAL/SYR IV SCH ×2 (10:04→22:13)
[2018-05-20] MEDS: INSULIN LANTUS (GLARGINE) 1 /0.01ml (100units/ml) SC SCH (10:04)
[2018-05-20] MEDS: BACITRACIN-POLYMYXIN B TOPICAL OINT UD TOP SCH (10:05)
[2018-05-20] MEDS: metFORMIN HYDROCHLORIDE 500 MG TAB PO SCH (11:34)
[2018-05-20 13:00] VITALS: BP 135/82
[2018-05-20 16:23] VITALS: BP 117/62
[2018-05-20 21:33] VITALS: BP 136/78
[2018-05-20] MEDS: ATORVASTATIN 20 MG TAB PO SCH (22:13)
[2018-05-21 04:35] VITALS: BP 138/81
[2018-05-21] MEDS: GABAPENTIN 300 MG CAP PO SCH ×3 (05:27→22:05)
[2018-05-21] MEDS: ceFAZolin 1GM/50ML 50 ML IV SCH ×3 (05:27→21:30)
[2018-05-21] MEDS: ACCU-CHEK COMFORT CURVE STRIP VI SCH ×4 (06:30→22:05)
[2018-05-21] MEDS: InsuLIN REG 1unit/0.01ml Soln (100units/ml) SC SCH ×4 (06:38→22:04)
[2018-05-21] MEDS: Pro-Stat SF 30ml Vanilla PO SCH ×2 (08:51→17:59)
[2018-05-21 09:00] VITALS: BP 101/64
[2018-05-21] MEDS: ASCORBIC ACID 500 MG TAB PO SCH ×2 (09:26→22:05)
[2018-05-21] MEDS: LOSARTAN POTASSIUM 50 MG TAB PO SCH (09:27)
[2018-05-21] MEDS: ENOXAPARIN SOD 40 MG/0.4 ML SYRINGE SC SCH (09:27)
[2018-05-21] MEDS: SODIUM CHLOR 0.9% PF (SALINE LOCK) 10ML VIAL/SYR IV SCH ×2 (09:27→22:05)
[2018-05-21] MEDS: MULTIPLE VITAMIN TAB PO SCH (09:27)
[2018-05-21] MEDS: INSULIN LANTUS (GLARGINE) 1 /0.01ml (100units/ml) SC SCH (09:29)
[2018-05-21] MEDS: OXYCODONE W/ ACETAMINOPHEN 5/325MG TABLET PO PRN ×2 (09:57→20:40)
[2018-05-21] MEDS: BACITRACIN-POLYMYXIN B TOPICAL OINT UD TOP SCH (10:00)
[2018-05-21] MEDS: metFORMIN HYDROCHLORIDE 500 MG TAB PO SCH (11:26)
[2018-05-21 12:45] VITALS: BP 123/77
[2018-05-21 17:26] VITALS: BP_SYST 114; BP_SYST 147; BP_DIAS 70; BP_DIAS 83
[2018-05-21 21:49] VITALS: BP 150/81
[2018-05-21] MEDS: ATORVASTATIN 20 MG TAB PO SCH (22:05)
[2018-05-22] MEDS: ceFAZolin 1GM/50ML 50 ML IV SCH ×3 (04:35→20:05)
[2018-05-22 05:00] VITALS: BP 141/75
[2018-05-22] MEDS: GABAPENTIN 300 MG CAP PO SCH ×3 (06:05→22:12)
[2018-05-22] MEDS: ACCU-CHEK COMFORT CURVE STRIP VI SCH ×4 (07:02→22:13)
[2018-05-22] MEDS: InsuLIN REG 1unit/0.01ml Soln (100units/ml) SC SCH ×4 (07:06→22:13)
[2018-05-22] MEDS: Pro-Stat SF 30ml Vanilla PO SCH ×2 (08:00→18:16)
[2018-05-22 09:00] VITALS: BP 134/74
[2018-05-22] MEDS: OXYCODONE W/ ACETAMINOPHEN 5/325MG TABLET PO PRN ×3 (09:36→20:05)
[2018-05-22] MEDS: BACITRACIN-POLYMYXIN B TOPICAL OINT UD TOP SCH (10:00)
[2018-05-22] MEDS: SODIUM CHLOR 0.9% PF (SALINE LOCK) 10ML VIAL/SYR IV SCH ×2 (10:00→22:14)
[2018-05-22] MEDS: LOSARTAN POTASSIUM 50 MG TAB PO SCH (10:44)
[2018-05-22] MEDS: MULTIPLE VITAMIN TAB PO SCH (10:44)
[2018-05-22] MEDS: ASCORBIC ACID 500 MG TAB PO SCH ×2 (10:44→22:13)
[2018-05-22] MEDS: ENOXAPARIN SOD 40 MG/0.4 ML SYRINGE SC SCH (10:45)
[2018-05-22] MEDS: INSULIN LANTUS (GLARGINE) 1 /0.01ml (100units/ml) SC SCH (10:47)
[2018-05-22] MEDS: metFORMIN HYDROCHLORIDE 500 MG TAB PO SCH (13:02)
[2018-05-22 13:05] VITALS: BP 124/72
[2018-05-22 17:00] VITALS: BP 133/62
[2018-05-22] MEDS: ATORVASTATIN 20 MG TAB PO SCH (22:12)
[2018-05-23 05:17] VITALS: BP 148/77
[2018-05-23] MEDS: GABAPENTIN 300 MG CAP PO SCH ×3 (05:39→22:14)
[2018-05-23] MEDS: ceFAZolin 1GM/50ML 50 ML IV SCH ×3 (05:39→20:44)
[2018-05-23] MEDS: OXYCODONE W/ ACETAMINOPHEN 5/325MG TABLET PO PRN ×4 (06:23→20:44)
[2018-05-23] MEDS: ACCU-CHEK COMFORT CURVE STRIP VI SCH ×4 (06:23→22:17)
[2018-05-23] MEDS: InsuLIN REG 1unit/0.01ml Soln (100units/ml) SC SCH ×4 (06:49→22:16)
[2018-05-23] MEDS: Pro-Stat SF 30ml Vanilla PO SCH ×2 (08:00→17:08)
[2018-05-23 09:00] VITALS: BP 128/62
[2018-05-23] MEDS: SODIUM CHLOR 0.9% PF (SALINE LOCK) 10ML VIAL/SYR IV SCH ×2 (10:00→22:16)
[2018-05-23] MEDS: BACITRACIN-POLYMYXIN B TOPICAL OINT UD TOP SCH (10:00)
[2018-05-23] MEDS: MULTIPLE VITAMIN TAB PO SCH (10:43)
[2018-05-23] MEDS: LOSARTAN POTASSIUM 50 MG TAB PO SCH (10:44)
[2018-05-23] MEDS: ASCORBIC ACID 500 MG TAB PO SCH ×2 (10:45→22:14)
[2018-05-23] MEDS: ENOXAPARIN SOD 40 MG/0.4 ML SYRINGE SC SCH (10:45)
[2018-05-23] MEDS: INSULIN LANTUS (GLARGINE) 1 /0.01ml (100units/ml) SC SCH (10:50)
[2018-05-23] MEDS: metFORMIN HYDROCHLORIDE 500 MG TAB PO SCH (12:00)
[2018-05-23 13:28] VITALS: BP 111/65
[2018-05-23 17:00] VITALS: BP 122/66
[2018-05-23] MEDS: ATORVASTATIN 20 MG TAB PO SCH (22:14)
[2018-05-23 22:16] VITALS: BP 150/81
[2018-05-24 05:00] VITALS: BP 160/83
[2018-05-24] MEDS: ceFAZolin 1GM/50ML 50 ML IV SCH ×3 (05:50→21:07)
[2018-05-24] MEDS: OXYCODONE W/ ACETAMINOPHEN 5/325MG TABLET PO PRN ×3 (05:51→21:06)
[2018-05-24] MEDS: GABAPENTIN 300 MG CAP PO SCH (05:51)
[2018-05-24] MEDS: ACCU-CHEK COMFORT CURVE STRIP VI SCH ×4 (05:51→21:14)
[2018-05-24] MEDS: InsuLIN REG 1unit/0.01ml Soln (100units/ml) SC SCH ×4 (06:44→21:17)
[2018-05-24] MEDS: Pro-Stat SF 30ml Vanilla PO SCH ×2 (08:00→18:00)
[2018-05-24 09:00] VITALS: BP 134/72
[2018-05-24] MEDS: BACITRACIN-POLYMYXIN B TOPICAL OINT UD TOP SCH (10:00)
[2018-05-24] MEDS: INSULIN LANTUS (GLARGINE) 1 /0.01ml (100units/ml) SC SCH (10:00)
[2018-05-24] MEDS: MULTIPLE VITAMIN TAB PO SCH (10:24)
[2018-05-24] MEDS: LOSARTAN POTASSIUM 50 MG TAB PO SCH (10:24)
[2018-05-24] MEDS: ASCORBIC ACID 500 MG TAB PO SCH ×2 (10:24→21:06)
[2018-05-24] MEDS: SODIUM CHLOR 0.9% PF (SALINE LOCK) 10ML VIAL/SYR IV SCH ×2 (10:25→21:07)
[2018-05-24] MEDS: ENOXAPARIN SOD 40 MG/0.4 ML SYRINGE SC SCH (10:25)
[2018-05-24] MEDS: metFORMIN HYDROCHLORIDE 500 MG TAB PO SCH (12:00)
[2018-05-24 13:00] VITALS: BP 141/80
[2018-05-24] MEDS: GABAPENTIN 100 MG CAP PO SCH ×2 (14:39→21:06)
[2018-05-24 16:59] VITALS: BP 140/84
[2018-05-24] MEDS: ATORVASTATIN 20 MG TAB PO SCH (21:07)
[2018-05-24 22:00] VITALS: BP 145/76
[2018-05-25 04:53] VITALS: BP 118/77
[2018-05-25] MEDS: ceFAZolin 1GM/50ML 50 ML IV SCH ×3 (05:00→21:30)
[2018-05-25] MEDS: GABAPENTIN 100 MG CAP PO SCH (05:45)
[2018-05-25] MEDS: OXYCODONE W/ ACETAMINOPHEN 5/325MG TABLET PO PRN ×2 (05:52→20:15)
[2018-05-25] MEDS: InsuLIN REG 1unit/0.01ml Soln (100units/ml) SC SCH ×4 (06:10→21:59)
[2018-05-25] MEDS: ACCU-CHEK COMFORT CURVE STRIP VI SCH ×4 (06:11→21:50)
[2018-05-25] MEDS: Pro-Stat SF 30ml Vanilla PO SCH ×2 (08:00→18:00)
[2018-05-25 09:00] VITALS: BP 107/62
[2018-05-25] MEDS: BACITRACIN-POLYMYXIN B TOPICAL OINT UD TOP SCH (10:00)
[2018-05-25] MEDS: ENOXAPARIN SOD 40 MG/0.4 ML SYRINGE SC SCH (10:04)
[2018-05-25] MEDS: ASCORBIC ACID 500 MG TAB PO SCH ×2 (10:05→21:43)
[2018-05-25] MEDS: MULTIPLE VITAMIN TAB PO SCH (10:05)
[2018-05-25] MEDS: SODIUM CHLOR 0.9% PF (SALINE LOCK) 10ML VIAL/SYR IV SCH ×2 (10:05→21:50)
[2018-05-25] MEDS: LOSARTAN POTASSIUM 50 MG TAB PO SCH (10:06)
[2018-05-25] MEDS: INSULIN LANTUS (GLARGINE) 1 /0.01ml (100units/ml) SC SCH (10:11)
[2018-05-25] MEDS: metFORMIN HYDROCHLORIDE 500 MG TAB PO SCH (12:19)
[2018-05-25 13:00] VITALS: BP 126/80
[2018-05-25] MEDS: GABAPENTIN 300 MG CAP PO SCH ×2 (13:36→21:44)
[2018-05-25 17:00] VITALS: BP 117/70
[2018-05-25] MEDS: ATORVASTATIN 20 MG TAB PO SCH (21:43)
[2018-05-25 21:56] VITALS: BP 115/115
[2018-05-26 05:00] VITALS: BP 109/59
[2018-05-26] MEDS: ceFAZolin 1GM/50ML 50 ML IV SCH ×3 (06:11→21:29)
[2018-05-26] MEDS: GABAPENTIN 300 MG CAP PO SCH ×3 (06:11→21:30)
[2018-05-26] MEDS: OXYCODONE W/ ACETAMINOPHEN 5/325MG TABLET PO PRN ×2 (06:15→21:30)
[2018-05-26] MEDS: ACCU-CHEK COMFORT CURVE STRIP VI SCH ×4 (07:00→21:39)
[2018-05-26] MEDS: InsuLIN REG 1unit/0.01ml Soln (100units/ml) SC SCH ×4 (07:00→21:39)
[2018-05-26] MEDS: Pro-Stat SF 30ml Vanilla PO SCH ×2 (08:00→18:00)
[2018-05-26 09:00] VITALS: BP 152/74
[2018-05-26] MEDS: BACITRACIN-POLYMYXIN B TOPICAL OINT UD TOP SCH (10:00)
[2018-05-26] MEDS: MULTIPLE VITAMIN TAB PO SCH (10:22)
[2018-05-26] MEDS: LOSARTAN POTASSIUM 50 MG TAB PO SCH (10:22)
[2018-05-26] MEDS: SODIUM CHLOR 0.9% PF (SALINE LOCK) 10ML VIAL/SYR IV SCH ×2 (10:22→21:40)
[2018-05-26] MEDS: ASCORBIC ACID 500 MG TAB PO SCH ×2 (10:22→21:30)
[2018-05-26] MEDS: ENOXAPARIN SOD 40 MG/0.4 ML SYRINGE SC SCH (10:23)
[2018-05-26] MEDS: INSULIN LANTUS (GLARGINE) 1 /0.01ml (100units/ml) SC SCH (10:24)
[2018-05-26] MEDS: metFORMIN HYDROCHLORIDE 500 MG TAB PO SCH (12:00)
[2018-05-26 13:00] VITALS: BP 124/84
[2018-05-26 17:00] VITALS: BP 122/61
[2018-05-26] MEDS: ATORVASTATIN 20 MG TAB PO SCH (21:30)
[2018-05-27 05:08] VITALS: BP 157/82
[2018-05-27] MEDS: GABAPENTIN 300 MG CAP PO SCH ×3 (05:56→22:14)
[2018-05-27] MEDS: ceFAZolin 1GM/50ML 50 ML IV SCH ×3 (05:56→22:07)
[2018-05-27] MEDS: OXYCODONE W/ ACETAMINOPHEN 5/325MG TABLET PO PRN ×3 (06:07→22:14)
[2018-05-27] MEDS: ACCU-CHEK COMFORT CURVE STRIP VI SCH ×4 (06:07→22:17)
[2018-05-27] MEDS: InsuLIN REG 1unit/0.01ml Soln (100units/ml) SC SCH ×4 (06:07→22:17)
[2018-05-27] MEDS: Pro-Stat SF 30ml Vanilla PO SCH ×2 (08:00→18:03)
[2018-05-27] MEDS: SODIUM CHLOR 0.9% PF (SALINE LOCK) 10ML VIAL/SYR IV SCH ×2 (09:00→22:17)
[2018-05-27] MEDS: MULTIPLE VITAMIN TAB PO SCH (09:00)
[2018-05-27] MEDS: ENOXAPARIN SOD 40 MG/0.4 ML SYRINGE SC SCH (09:00)
[2018-05-27] MEDS: LOSARTAN POTASSIUM 50 MG TAB PO SCH (09:01)
[2018-05-27] MEDS: ASCORBIC ACID 500 MG TAB PO SCH ×2 (09:01→22:17)
[2018-05-27 09:04] VITALS: BP 115/69
[2018-05-27] MEDS: INSULIN LANTUS (GLARGINE) 1 /0.01ml (100units/ml) SC SCH (09:56)
[2018-05-27] MEDS: BACITRACIN-POLYMYXIN B TOPICAL OINT UD TOP SCH (10:00)
[2018-05-27] MEDS: metFORMIN HYDROCHLORIDE 500 MG TAB PO SCH (12:00)
[2018-05-27 13:05] VITALS: BP 148/76
[2018-05-27 17:00] VITALS: BP 122/76
[2018-05-27 21:42] VITALS: BP 155/73
[2018-05-27] MEDS: ATORVASTATIN 20 MG TAB PO SCH (22:17)
[2018-05-28 05:10] VITALS: BP_SYST 121; BP_SYST 149; BP_DIAS 83; BP_DIAS 92
[2018-05-28] MEDS: ceFAZolin 1GM/50ML 50 ML IV SCH (05:53)
[2018-05-28] MEDS: OXYCODONE W/ ACETAMINOPHEN 5/325MG TABLET PO PRN ×2 (05:53→18:49)
[2018-05-28] MEDS: GABAPENTIN 300 MG CAP PO SCH ×3 (05:53→22:07)
[2018-05-28] MEDS: ACCU-CHEK COMFORT CURVE STRIP VI SCH ×4 (05:58→23:18)
[2018-05-28] MEDS: INSULIN LANTUS (GLARGINE) 1 /0.01ml (100units/ml) SC SCH ×4 (05:58→09:20)
[2018-05-28] MEDS: InsuLIN REG 1unit/0.01ml Soln (100units/ml) SC SCH ×4 (05:58→23:19)
[2018-05-28] MEDS: Pro-Stat SF 30ml Vanilla PO SCH ×2 (08:03→17:24)
[2018-05-28 08:36] VITALS: BP 136/63
[2018-05-28] MEDS: LOSARTAN POTASSIUM 50 MG TAB PO SCH (09:02)
[2018-05-28] MEDS: METOPROLOL SUCCINATE XL 50 MG TAB PO SCH (09:02)
[2018-05-28] MEDS: ASCORBIC ACID 500 MG TAB PO SCH ×2 (09:02→22:07)
[2018-05-28] MEDS: ENOXAPARIN SOD 40 MG/0.4 ML SYRINGE SC SCH (09:03)
[2018-05-28] MEDS: SODIUM CHLOR 0.9% PF (SALINE LOCK) 10ML VIAL/SYR IV SCH ×2 (09:03→22:07)
[2018-05-28] MEDS: MULTIPLE VITAMIN TAB PO SCH (09:03)
[2018-05-28] MEDS: metFORMIN HYDROCHLORIDE 500 MG TAB PO SCH (11:57)
[2018-05-28 12:23] VITALS: BP 104/62
[2018-05-28] MEDS: cefTRIAXone 1GM/10ml IVPUSH 10 ML IV SCH (13:40)
[2018-05-28 16:43] VITALS: BP 143/71
[2018-05-28] MEDS: ATORVASTATIN 20 MG TAB PO SCH (22:07)
[2018-05-28 22:13] VITALS: BP 168/86
[2018-05-28 22:25] VITALS: BP 141/67
[2018-05-29 05:00] VITALS: BP 126/66
[2018-05-29] MEDS: InsuLIN REG 1unit/0.01ml Soln (100units/ml) SC SCH ×4 (06:46→22:16)
[2018-05-29] MEDS: ACCU-CHEK COMFORT CURVE STRIP VI SCH ×4 (06:46→22:16)
[2018-05-29] MEDS: GABAPENTIN 300 MG CAP PO SCH ×3 (06:46→22:15)
[2018-05-29 08:00] VITALS: BP 148/75
[2018-05-29] MEDS: Pro-Stat SF 30ml Vanilla PO SCH ×2 (08:00→18:00)
[2018-05-29] MEDS: MULTIPLE VITAMIN TAB PO SCH (09:55)
[2018-05-29] MEDS: ASCORBIC ACID 500 MG TAB PO SCH ×2 (09:55→22:16)
[2018-05-29] MEDS: LOSARTAN POTASSIUM 50 MG TAB PO SCH (09:55)
[2018-05-29] MEDS: METOPROLOL SUCCINATE XL 50 MG TAB PO SCH (09:56)
[2018-05-29] MEDS: cefTRIAXone 1GM/10ml IVPUSH 10 ML IV SCH (09:56)
[2018-05-29] MEDS: SODIUM CHLOR 0.9% PF (SALINE LOCK) 10ML VIAL/SYR IV SCH ×2 (09:57→22:15)
[2018-05-29] MEDS: INSULIN LANTUS (GLARGINE) 1 /0.01ml (100units/ml) SC SCH (10:08)
[2018-05-29] MEDS: ENOXAPARIN SOD 40 MG/0.4 ML SYRINGE SC SCH (10:41)
[2018-05-29] MEDS: OXYCODONE W/ ACETAMINOPHEN 5/325MG TABLET PO PRN ×2 (10:46→22:14)
[2018-05-29] MEDS: metFORMIN HYDROCHLORIDE 500 MG TAB PO SCH (11:47)
[2018-05-29 13:00] VITALS: BP 155/68
[2018-05-29 17:00] VITALS: BP 116/64
[2018-05-29 22:00] VITALS: BP 142/78
[2018-05-29] MEDS: ATORVASTATIN 20 MG TAB PO SCH (22:15)
[2018-05-30 04:56] VITALS: BP 143/79
[2018-05-30 05:05] VITALS: BP 143/79
[2018-05-30] MEDS: GABAPENTIN 300 MG CAP PO SCH ×3 (06:38→21:47)
[2018-05-30] MEDS: InsuLIN REG 1unit/0.01ml Soln (100units/ml) SC SCH ×4 (06:39→21:53)
[2018-05-30] MEDS: ACCU-CHEK COMFORT CURVE STRIP VI SCH ×4 (06:39→21:53)
[2018-05-30 09:00] VITALS: BP 113/69
[2018-05-30] MEDS: cefTRIAXone 1GM/10ml IVPUSH 10 ML IV SCH (09:29)
[2018-05-30] MEDS: Pro-Stat SF 30ml Vanilla PO SCH ×2 (09:30→18:00)
[2018-05-30] MEDS: LOSARTAN POTASSIUM 50 MG TAB PO SCH (10:02)
[2018-05-30] MEDS: SODIUM CHLOR 0.9% PF (SALINE LOCK) 10ML VIAL/SYR IV SCH ×2 (10:02→21:53)
[2018-05-30] MEDS: METOPROLOL SUCCINATE XL 50 MG TAB PO SCH (10:02)
[2018-05-30] MEDS: MULTIPLE VITAMIN TAB PO SCH (10:02)
[2018-05-30] MEDS: ASCORBIC ACID 500 MG TAB PO SCH ×2 (10:02→21:47)
[2018-05-30] MEDS: INSULIN LANTUS (GLARGINE) 1 /0.01ml (100units/ml) SC SCH (10:12)
[2018-05-30] MEDS: metFORMIN HYDROCHLORIDE 500 MG TAB PO SCH (11:40)
[2018-05-30 12:30] VITALS: BP 128/72
[2018-05-30 17:00] VITALS: BP 130/69
[2018-05-30 21:30] VITALS: BP 148/84
[2018-05-30] MEDS: ATORVASTATIN 20 MG TAB PO SCH (21:47)
[2018-05-30] MEDS: OXYCODONE W/ ACETAMINOPHEN 5/325MG TABLET PO PRN (21:47)
[2018-05-31 05:00] VITALS: BP 125/67
[2018-05-31] MEDS: ACCU-CHEK COMFORT CURVE STRIP VI SCH ×4 (06:07→21:57)
[2018-05-31] MEDS: InsuLIN REG 1unit/0.01ml Soln (100units/ml) SC SCH ×4 (06:07→21:57)
[2018-05-31] MEDS: GABAPENTIN 300 MG CAP PO SCH ×3 (06:07→21:38)
[2018-05-31] MEDS: OXYCODONE W/ ACETAMINOPHEN 5/325MG TABLET PO PRN ×2 (06:53→21:38)
[2018-05-31 08:08] VITALS: BP 139/76
[2018-05-31] MEDS: cefTRIAXone 1GM/10ml IVPUSH 10 ML IV SCH (08:49)
[2018-05-31] MEDS: Pro-Stat SF 30ml Vanilla PO SCH ×2 (09:41→18:39)
[2018-05-31] MEDS: SODIUM CHLOR 0.9% PF (SALINE LOCK) 10ML VIAL/SYR IV SCH ×2 (09:42→21:56)
[2018-05-31] MEDS: INSULIN LANTUS (GLARGINE) 1 /0.01ml (100units/ml) SC SCH (10:00)
[2018-05-31] MEDS: ASCORBIC ACID 500 MG TAB PO SCH ×2 (10:33→21:38)
[2018-05-31] MEDS: MULTIPLE VITAMIN TAB PO SCH (10:33)
[2018-05-31] MEDS: LOSARTAN POTASSIUM 50 MG TAB PO SCH (10:34)
[2018-05-31] MEDS: METOPROLOL SUCCINATE XL 50 MG TAB PO SCH (10:35)
[2018-05-31 12:00] VITALS: BP 126/71
[2018-05-31] MEDS: metFORMIN HYDROCHLORIDE 500 MG TAB PO SCH (12:18)
[2018-05-31 16:54] VITALS: BP 122/68
[2018-05-31] MEDS: ATORVASTATIN 20 MG TAB PO SCH (21:38)
[2018-05-31 22:00] VITALS: BP 113/72
[2018-06-01 05:00] VITALS: BP 119/68
[2018-06-01] MEDS: ACCU-CHEK COMFORT CURVE STRIP VI SCH ×4 (06:08→21:59)
[2018-06-01] MEDS: GABAPENTIN 300 MG CAP PO SCH ×4 (06:08→22:00)
[2018-06-01] MEDS: InsuLIN REG 1unit/0.01ml Soln (100units/ml) SC SCH ×4 (06:08→21:59)
[2018-06-01] MEDS: OXYCODONE W/ ACETAMINOPHEN 5/325MG TABLET PO PRN ×3 (06:09→22:04)
[2018-06-01 09:00] VITALS: BP 138/66
[2018-06-01] MEDS: cefTRIAXone 1GM/50ML D5W 50 ML IV SCH (10:06)
[2018-06-01] MEDS: MULTIPLE VITAMIN TAB PO SCH (10:06)
[2018-06-01] MEDS: ASCORBIC ACID 500 MG TAB PO SCH ×2 (10:07→21:45)
[2018-06-01] MEDS: LOSARTAN POTASSIUM 50 MG TAB PO SCH (10:07)
[2018-06-01] MEDS: METOPROLOL SUCCINATE XL 50 MG TAB PO SCH (10:08)
[2018-06-01] MEDS: Pro-Stat SF 30ml Vanilla PO SCH ×2 (10:09→17:36)
[2018-06-01] MEDS: SODIUM CHLOR 0.9% PF (SALINE LOCK) 10ML VIAL/SYR IV SCH ×2 (10:09→21:44)
[2018-06-01] MEDS: INSULIN LANTUS (GLARGINE) 1 /0.01ml (100units/ml) SC SCH (10:22)
[2018-06-01] MEDS: metFORMIN HYDROCHLORIDE 500 MG TAB PO SCH (12:39)
[2018-06-01 13:00] VITALS: BP 144/77
[2018-06-01 16:00] VITALS: BP 127/71
[2018-06-01] MEDS: ATORVASTATIN 20 MG TAB PO SCH (21:45)
[2018-06-01 22:00] VITALS: BP 154/76
[2018-06-02 05:55] VITALS: BP 142/64
[2018-06-02] MEDS: InsuLIN REG 1unit/0.01ml Soln (100units/ml) SC SCH ×4 (06:18→22:00)
[2018-06-02] MEDS: ACCU-CHEK COMFORT CURVE STRIP VI SCH ×4 (06:19→22:00)
[2018-06-02 08:24] VITALS: BP 101/62
[2018-06-02] MEDS: LOSARTAN POTASSIUM 50 MG TAB PO SCH (09:44)
[2018-06-02] MEDS: ASCORBIC ACID 500 MG TAB PO SCH ×2 (09:44→22:00)
[2018-06-02] MEDS: MULTIPLE VITAMIN TAB PO SCH (09:44)
[2018-06-02] MEDS: METOPROLOL SUCCINATE XL 50 MG TAB PO SCH (09:45)
[2018-06-02] MEDS: SODIUM CHLOR 0.9% PF (SALINE LOCK) 10ML VIAL/SYR IV SCH ×2 (09:45→22:00)
[2018-06-02] MEDS: cefTRIAXone 1GM/50ML D5W 50 ML IV SCH (09:45)
[2018-06-02] MEDS: Pro-Stat SF 30ml Vanilla PO SCH ×2 (09:46→17:15)
[2018-06-02] MEDS: INSULIN LANTUS (GLARGINE) 1 /0.01ml (100units/ml) SC SCH (09:49)
[2018-06-02] MEDS: OXYCODONE W/ ACETAMINOPHEN 5/325MG TABLET PO PRN ×2 (10:09→20:18)
[2018-06-02 11:48] VITALS: BP 136/74
[2018-06-02] MEDS: metFORMIN HYDROCHLORIDE 500 MG TAB PO SCH (12:12)
[2018-06-02] MEDS: GABAPENTIN 300 MG CAP PO SCH ×2 (14:13→22:58)
[2018-06-02 17:00] VITALS: BP 130/69
[2018-06-02 22:00] VITALS: BP 125/71
[2018-06-02] MEDS: ATORVASTATIN 20 MG TAB PO SCH (22:58)
[2018-06-03 05:50] VITALS: BP 129/76
[2018-06-03 05:53] VITALS: BP 120/74
[2018-06-03] MEDS: GABAPENTIN 300 MG CAP PO SCH ×3 (05:53→22:00)
[2018-06-03] MEDS: OXYCODONE W/ ACETAMINOPHEN 5/325MG TABLET PO PRN ×3 (05:55→19:53)
[2018-06-03] MEDS: InsuLIN REG 1unit/0.01ml Soln (100units/ml) SC SCH ×4 (06:52→22:00)
[2018-06-03] MEDS: ACCU-CHEK COMFORT CURVE STRIP VI SCH ×4 (06:52→22:00)
[2018-06-03 07:54] VITALS: BP 143/62
[2018-06-03] MEDS: cefTRIAXone 1GM/50ML D5W 50 ML IV SCH (09:48)
[2018-06-03] MEDS: ASCORBIC ACID 500 MG TAB PO SCH ×2 (09:48→23:02)
[2018-06-03] MEDS: MULTIPLE VITAMIN TAB PO SCH (09:53)
[2018-06-03] MEDS: METOPROLOL SUCCINATE XL 50 MG TAB PO SCH (09:53)
[2018-06-03] MEDS: LOSARTAN POTASSIUM 50 MG TAB PO SCH (09:54)
[2018-06-03] MEDS: Pro-Stat SF 30ml Vanilla PO SCH ×2 (10:47→18:22)
[2018-06-03] MEDS: SODIUM CHLOR 0.9% PF (SALINE LOCK) 10ML VIAL/SYR IV SCH ×2 (10:47→23:01)
[2018-06-03] MEDS: INSULIN LANTUS (GLARGINE) 1 /0.01ml (100units/ml) SC SCH (10:48)
[2018-06-03 11:17] LABS: Basophils # (auto) 0.1 uL; Basophils % (auto) 1.2 % (0.0-2.0); Eosinophils # (auto) 0.3 uL; Hematocrit 37.6 % (41.0-53.0); Hemoglobin 12.3 g/dL (13.5-17.5); Lymphocytes # (auto) 2.3 uL; Lymphocytes % (auto) 40.7 % (10.0-50.0); Mean Corpuscular Hemoglobin 27.5 pg (28.0-32.0); Mean Corpuscular Hgb Conc. 32.7 g/dL (32.0-36.0); Mean Corpuscular Volume 84.1 fL (80.0-100.0); Monocytes # (auto) 0.6 uL; Monocytes % (auto) 11.1 % (0.0-12.0); Neutrophils # (auto) 2.4 uL; Nucleated Red Blood Cells % 0.2 %; Platelet Count (auto) 335 10^3/uL (140-450); Red Blood Cells 4.47 10^6/uL (4.5-5.90); Red Cell Distribution Width 13.1 % (11.8-14.3); White Blood Cell 5.7 10^3/uL (4.4-10.8)
[2018-06-03 11:52] LABS: Albumin 2.8 g/dL (3.4-5.0); BUN/Creatinine Ratio 18.1; Bilirubin, Total 0.1 mg/dL (0.2-1.0); Calcium 9.1 mg/dL (8.5-10.1); Total Protein 7.6 g/dL (6.4-8.2)
[2018-06-03] MEDS: metFORMIN HYDROCHLORIDE 500 MG TAB PO SCH (12:00)
[2018-06-03 12:20] VITALS: BP 115/58
[2018-06-03 17:00] VITALS: BP 112/71
[2018-06-03 22:03] VITALS: BP 133/75
[2018-06-03] MEDS: ATORVASTATIN 20 MG TAB PO SCH (23:02)
[2018-06-04 04:34] VITALS: BP 147/87
[2018-06-04] MEDS: InsuLIN REG 1unit/0.01ml Soln (100units/ml) SC SCH ×4 (06:42→22:00)
[2018-06-04] MEDS: ACCU-CHEK COMFORT CURVE STRIP VI SCH ×4 (06:42→22:00)
[2018-06-04] MEDS: GABAPENTIN 300 MG CAP PO SCH ×3 (06:52→22:00)
[2018-06-04] MEDS: OXYCODONE W/ ACETAMINOPHEN 5/325MG TABLET PO PRN ×3 (06:53→22:49)
[2018-06-04 09:02] VITALS: BP 126/64
[2018-06-04] MEDS: LOSARTAN POTASSIUM 50 MG TAB PO SCH (09:46)
[2018-06-04] MEDS: cefTRIAXone 1GM/50ML D5W 50 ML IV SCH (09:46)
[2018-06-04] MEDS: MULTIPLE VITAMIN TAB PO SCH (09:47)
[2018-06-04] MEDS: METOPROLOL SUCCINATE XL 50 MG TAB PO SCH (09:47)
[2018-06-04] MEDS: ASCORBIC ACID 500 MG TAB PO SCH ×2 (09:47→22:00)
[2018-06-04] MEDS: Pro-Stat SF 30ml Vanilla PO SCH ×2 (10:16→17:53)
[2018-06-04] MEDS: SODIUM CHLOR 0.9% PF (SALINE LOCK) 10ML VIAL/SYR IV SCH ×2 (10:16→22:00)
[2018-06-04] MEDS: INSULIN LANTUS (GLARGINE) 1 /0.01ml (100units/ml) SC SCH (10:17)
[2018-06-04] MEDS: metFORMIN HYDROCHLORIDE 500 MG TAB PO SCH (12:15)
[2018-06-04 13:02] VITALS: BP 121/67
[2018-06-04 17:00] VITALS: BP_SYST 117; BP_SYST 129; BP_DIAS 63; BP_DIAS 76
[2018-06-04 22:00] VITALS: BP 132/68
[2018-06-04] MEDS: ATORVASTATIN 20 MG TAB PO SCH (22:00)
[2018-06-05 05:00] VITALS: BP 115/63
[2018-06-05] MEDS: InsuLIN REG 1unit/0.01ml Soln (100units/ml) SC SCH ×4 (06:42→22:12)
[2018-06-05] MEDS: ACCU-CHEK COMFORT CURVE STRIP VI SCH ×4 (06:42→22:12)
[2018-06-05] MEDS: GABAPENTIN 300 MG CAP PO SCH ×3 (06:58→22:23)
[2018-06-05] MEDS: OXYCODONE W/ ACETAMINOPHEN 5/325MG TABLET PO PRN ×3 (06:58→22:24)
[2018-06-05 07:49] VITALS: BP 146/75
[2018-06-05] MEDS: Pro-Stat SF 30ml Vanilla PO SCH ×2 (08:00→18:22)
[2018-06-05] MEDS: SODIUM CHLOR 0.9% PF (SALINE LOCK) 10ML VIAL/SYR IV SCH ×2 (09:08→22:23)
[2018-06-05] MEDS: cefTRIAXone 1GM/50ML D5W 50 ML IV SCH (09:08)
[2018-06-05] MEDS: MULTIPLE VITAMIN TAB PO SCH (09:36)
[2018-06-05] MEDS: LOSARTAN POTASSIUM 50 MG TAB PO SCH (09:37)
[2018-06-05] MEDS: INSULIN LANTUS (GLARGINE) 1 /0.01ml (100units/ml) SC SCH (09:37)
[2018-06-05] MEDS: METOPROLOL SUCCINATE XL 50 MG TAB PO SCH (09:37)
[2018-06-05] MEDS: ASCORBIC ACID 500 MG TAB PO SCH ×2 (09:37→22:23)
[2018-06-05 11:46] VITALS: BP 147/74
[2018-06-05] MEDS: metFORMIN HYDROCHLORIDE 500 MG TAB PO SCH (11:52)
[2018-06-05 16:57] VITALS: BP 121/70
[2018-06-05 21:36] VITALS: BP 156/88
[2018-06-05] MEDS: ATORVASTATIN 20 MG TAB PO SCH (22:23)
[2018-06-06 04:44] VITALS: BP 136/77
[2018-06-06] MEDS: GABAPENTIN 300 MG CAP PO SCH ×3 (05:37→21:26)
[2018-06-06] MEDS: OXYCODONE W/ ACETAMINOPHEN 5/325MG TABLET PO PRN ×3 (05:38→21:50)
[2018-06-06] MEDS: ACCU-CHEK COMFORT CURVE STRIP VI SCH ×4 (06:36→21:27)
[2018-06-06] MEDS: InsuLIN REG 1unit/0.01ml Soln (100units/ml) SC SCH ×4 (06:44→21:28)
[2018-06-06] MEDS: Pro-Stat SF 30ml Vanilla PO SCH ×2 (08:00→18:00)
[2018-06-06 09:04] VITALS: BP_SYST 130; BP_SYST 132; BP_DIAS 69; BP_DIAS 78
[2018-06-06] MEDS: cefTRIAXone 1GM/50ML D5W 50 ML IV SCH (10:28)
[2018-06-06] MEDS: SODIUM CHLOR 0.9% PF (SALINE LOCK) 10ML VIAL/SYR IV SCH ×2 (10:28→21:26)
[2018-06-06] MEDS: LOSARTAN POTASSIUM 50 MG TAB PO SCH (10:29)
[2018-06-06] MEDS: MULTIPLE VITAMIN TAB PO SCH (10:29)
[2018-06-06] MEDS: ASCORBIC ACID 500 MG TAB PO SCH ×2 (10:29→21:25)
[2018-06-06] MEDS: INSULIN LANTUS (GLARGINE) 1 /0.01ml (100units/ml) SC SCH (10:30)
[2018-06-06] MEDS: METOPROLOL SUCCINATE XL 50 MG TAB PO SCH (10:30)
[2018-06-06] MEDS: metFORMIN HYDROCHLORIDE 500 MG TAB PO SCH (12:39)
[2018-06-06 13:22] VITALS: BP 117/71
[2018-06-06 17:11] VITALS: BP 131/68
[2018-06-06] MEDS: ATORVASTATIN 20 MG TAB PO SCH (21:26)
[2018-06-06 22:00] VITALS: BP 150/75
[2018-06-07 05:13] VITALS: BP 123/59
[2018-06-07] MEDS: InsuLIN REG 1unit/0.01ml Soln (100units/ml) SC SCH ×4 (07:00→21:31)
[2018-06-07] MEDS: GABAPENTIN 300 MG CAP PO SCH ×3 (07:01→21:19)
[2018-06-07] MEDS: ACCU-CHEK COMFORT CURVE STRIP VI SCH ×4 (07:05→21:30)
[2018-06-07 07:41] VITALS: BP 148/90
[2018-06-07] MEDS: SODIUM CHLOR 0.9% PF (SALINE LOCK) 10ML VIAL/SYR IV SCH ×2 (10:25→21:18)
[2018-06-07] MEDS: MULTIPLE VITAMIN TAB PO SCH (10:25)
[2018-06-07] MEDS: cefTRIAXone 1GM/50ML D5W 50 ML IV SCH (10:25)
[2018-06-07] MEDS: ASCORBIC ACID 500 MG TAB PO SCH ×2 (10:25→21:19)
[2018-06-07] MEDS: INSULIN LANTUS (GLARGINE) 1 /0.01ml (100units/ml) SC SCH (10:26)
[2018-06-07] MEDS: LOSARTAN POTASSIUM 50 MG TAB PO SCH (10:29)
[2018-06-07] MEDS: METOPROLOL SUCCINATE XL 50 MG TAB PO SCH (10:30)
[2018-06-07] MEDS: Pro-Stat SF 30ml Vanilla PO SCH ×2 (10:31→18:00)
[2018-06-07 11:58] VITALS: BP 136/72
[2018-06-07] MEDS: metFORMIN HYDROCHLORIDE 500 MG TAB PO SCH (12:05)
[2018-06-07 16:48] VITALS: BP 137/73
[2018-06-07] MEDS: ATORVASTATIN 20 MG TAB PO SCH (21:18)
[2018-06-07] MEDS: OXYCODONE W/ ACETAMINOPHEN 5/325MG TABLET PO PRN (21:20)
[2018-06-07 22:00] VITALS: BP 143/77
[2018-06-08 05:00] VITALS: BP 135/86
[2018-06-08 07:41] VITALS: BP 116/58
[2018-06-08] MEDS: GABAPENTIN 300 MG CAP PO SCH ×3 (07:46→23:24)
[2018-06-08] MEDS: ACCU-CHEK COMFORT CURVE STRIP VI SCH ×4 (07:48→23:29)
[2018-06-08] MEDS: InsuLIN REG 1unit/0.01ml Soln (100units/ml) SC SCH ×4 (07:49→22:00)
[2018-06-08] MEDS: Pro-Stat SF 30ml Vanilla PO SCH ×2 (08:00→17:03)
[2018-06-08] MEDS: cefTRIAXone 1GM/50ML D5W 50 ML IV SCH (09:41)
[2018-06-08] MEDS: MULTIPLE VITAMIN TAB PO SCH (09:41)
[2018-06-08] MEDS: ASCORBIC ACID 500 MG TAB PO SCH ×2 (09:41→23:24)
[2018-06-08] MEDS: SODIUM CHLOR 0.9% PF (SALINE LOCK) 10ML VIAL/SYR IV SCH ×2 (09:52→23:23)
[2018-06-08] MEDS: LOSARTAN POTASSIUM 50 MG TAB PO SCH (09:53)
[2018-06-08] MEDS: METOPROLOL SUCCINATE XL 50 MG TAB PO SCH (09:55)
[2018-06-08] MEDS: INSULIN LANTUS (GLARGINE) 1 /0.01ml (100units/ml) SC SCH (09:57)
[2018-06-08] MEDS: OXYCODONE W/ ACETAMINOPHEN 5/325MG TABLET PO PRN ×2 (10:39→23:28)
[2018-06-08] MEDS: metFORMIN HYDROCHLORIDE 500 MG TAB PO SCH (11:35)
[2018-06-08 12:07] VITALS: BP 123/65
[2018-06-08 16:46] VITALS: BP 146/75
[2018-06-08 22:00] VITALS: BP 154/73
[2018-06-08] MEDS: ATORVASTATIN 20 MG TAB PO SCH (23:24)
[2018-06-09 05:00] VITALS: BP 115/63
[2018-06-09] MEDS: GABAPENTIN 300 MG CAP PO SCH ×2 (07:04→14:29)
[2018-06-09] MEDS: ACCU-CHEK COMFORT CURVE STRIP VI SCH ×3 (07:08→17:14)
[2018-06-09] MEDS: InsuLIN REG 1unit/0.01ml Soln (100units/ml) SC SCH ×3 (07:09→17:00)
[2018-06-09] MEDS: Pro-Stat SF 30ml Vanilla PO SCH ×2 (08:00→18:00)
[2018-06-09 08:14] VITALS: BP 137/72
[2018-06-09] MEDS: cefTRIAXone 1GM/50ML D5W 50 ML IV SCH (08:54)
[2018-06-09] MEDS: OXYCODONE W/ ACETAMINOPHEN 5/325MG TABLET PO PRN ×2 (09:00→21:14)
[2018-06-09] MEDS: SODIUM CHLOR 0.9% PF (SALINE LOCK) 10ML VIAL/SYR IV SCH (10:37)
[2018-06-09] MEDS: MULTIPLE VITAMIN TAB PO SCH (10:37)
[2018-06-09] MEDS: ASCORBIC ACID 500 MG TAB PO SCH (10:37)
[2018-06-09] MEDS: METOPROLOL SUCCINATE XL 50 MG TAB PO SCH (10:54)
[2018-06-09] MEDS: LOSARTAN POTASSIUM 50 MG TAB PO SCH (10:54)
[2018-06-09] MEDS: INSULIN LANTUS (GLARGINE) 1 /0.01ml (100units/ml) SC SCH (10:58)
[2018-06-09] MEDS: metFORMIN HYDROCHLORIDE 500 MG TAB PO SCH (12:11)
[2018-06-09 12:14] VITALS: BP 144/69
[2018-06-09 16:50] VITALS: BP 102/57
[2018-06-09 18:36] VITALS: BP 102/57
[2018-06-09 22:00] VITALS: BP 121/70
== END 2018-06-09 23:55 | DRG 617 ==
LOC: EDBD 15:27 → ER 15:35 → EEVIPCON 15:36 → OVERFLOW 15:36 → EAST 18:29 → UNDODISIN 05-18 12:40
PROVIDERS: ADMIT Internal Medicine; ATTEND Internal Medicine
PROC: 0Y6R0Z0 Detachment at Right 2nd Toe, Complete, Open Approach (ICD-10-PCS; principal; 2018-05-19)
PROC: 02HV33Z Insertion of Infusion Device into Superior Vena Cava, Percutaneous Approach (ICD-10-PCS; 2018-05-19)
DX: E11.69 Type 2 diabetes mellitus with other specified complication (principal); M86.8X7 Other osteomyelitis, ankle and foot; E44.1 Mild protein-calorie malnutrition; H33.21 Serous retinal detachment, right eye; E11.621 Type 2 diabetes mellitus with foot ulcer; L97.519 Non-pressure chronic ulcer of other part of right foot with unspecified severity; E78.00 Pure hypercholesterolemia, unspecified; H54.40 Blindness, one eye, unspecified eye; H54.7 Unspecified visual loss; F17.210 Nicotine dependence, cigarettes, uncomplicated; I10 Essential (primary) hypertension; L08.9 Local infection of the skin and subcutaneous tissue, unspecified; Z79.4 Long term (current) use of insulin; Z79.899 Other long term (current) drug therapy; Z83.3 Family history of diabetes mellitus; Z68.23 Body mass index [BMI] 23.0-23.9, adult
CPT/HCPCS: 36415; 36569; 71045; 73720; 80048; 80053; 82962; 85007; 85025; 85027; 85610; 85730; 86850; 86900; 86901; 87077; 87081; 87186; 87205; 96365; 97163; A6257; G0378; J0690; J0696; J1815; J2250; J3490

== ENCOUNTER → 2018-07-23 | Outpatient (CLI) | payer OTHER ==
[~2018-07-23] MED LIST changes: +CIPR-217 PO; +ENA10T PO; +ENAL2.5T PO
== END | disposition home or self-care (01) ==
LOC: LAB 15:48 → MERGE 15:48 → EEVIPCON 15:48
DX: S91.103A Unspecified open wound of unspecified great toe without damage to nail, initial encounter (principal); X58.XXXA Exposure to other specified factors, initial encounter; Y93.89 Activity, other specified; Y92.89 Other specified places as the place of occurrence of the external cause; Y99.8 Other external cause status
CPT/HCPCS: 87070; 87077; 87186

== ENCOUNTER → 2018-08-04 | Emergency (ER) | payer OTHER ==
[~2018-08-04] MED LIST changes: -ENAL2.5T PO; +MIDAZOLAM HCL 1MG/1ML-2 ML VIAL ONE; +ONDANSETRON HCL 4 MG/2 ML VIAL ONE; +PROPOFOL 10 MG/ML 20 ML IV ONE; +SODIUM CHLORIDE LOCK 10 ML ONE; +ceFAZolin 1GM VL ONE; +fentaNYL CITRATE 100 MCG/2 ML VL ONE
== END | disposition left against medical advice (07) ==
LOC: ER 17:35 → EEVIPCON 17:35
DX: Z48.01 Encounter for change or removal of surgical wound dressing (principal); Z53.21 Procedure and treatment not carried out due to patient leaving prior to being seen by health care provider